=== PATIENT | male | born 1950 | race Caucasian/White ===

== ENCOUNTER → 2018-07-19 07:40 | Outpatient (CLI) | payer MEDICARE, SELFPAY ==
[2018-07-19 10:11] LABS: Add Manual Diff / Slide Review NO; Basophils Percent Auto 0.6 % (0-2); Hematocrit 45.1 % (41-53); Hemoglobin 15.4 g/dL (13.5-17.5); Lymphocytes Percent Auto 40.1 % (25-40); Mean Corpuscular HGB Conc 34.2 % (30-36); Mean Corpuscular Hemoglobin 31.9 PG (26-34); Mean Corpuscular Volume 93.5 fL (80-100); Monocytes Percent Auto 9.5 % (3-14); Neutrophils Absolute Auto 2300 /uL (3000-5900); Neutrophils Percent Auto 47.8 % (50-75); Platelet Count 329 X10^3/uL (150-400); Red Blood Cell Count 4.82 X10^6/uL (4.5-5.9); White Blood Cell Count 4.9 X10^3/uL (4.5-11.0)
[2018-07-19 12:14] LABS: Alanine Aminotransferase 31 IU/L (21-72); Albumin 4.4 g/dL (3.5-5.0); Albumin Globulin Ratio 1.6 (1.0-2.8); Alkaline Phosphatase 64 U/L (38-126); Aspartate Aminotransferase 41 IU/L (17-59); BUN Creatinine Ratio 12.7 (6-22); Bilirubin Total 0.8 mg/dL (0.2-1.3); Blood Urea Nitrogen 14 mg/dL (9-20); Calcium 9.2 mg/dL (8.4-10.2); Carbon Dioxide 29 mmol/L (22-32); Chloride 99 mmol/L (98-107); Cholesterol 123 mg/dL (140-199); Estimated Glomerular Filt Rate > 60.0 mL/min (>60); Globulin 2.7 g/dL (1.7-4.1); Glucose 93 mg/dL (80-110); HDL Cholesterol 57 mg/dL (40-60); HEMOLYSIS < 15 (0-50); LDL Cholesterol Calculated 50 mg/dL (<100); Potassium 4.7 mmol/L (3.4-5.1); Sodium 139 mmol/L (137-145); Total Protein 7.1 g/dL (6.3-8.2); Triglycerides 79 mg/dL (35-150)
[2018-07-19 12:43] LABS: Prostate Specific Antigen Scrn 1.86 ng/mL (0.1-4.0)
== END ==
PROVIDERS: PCP Internal Medicine; Visit Provider Internal Medicine
DX: E78.00 Pure hypercholesterolemia, unspecified (principal); I10 Essential (primary) hypertension; M48.02 Spinal stenosis, cervical region; Z12.5 Encounter for screening for malignant neoplasm of prostate
CPT/HCPCS: 36415; 80053; 80061; 85025; G0103

== ENCOUNTER → 2018-08-09 12:36 | Outpatient (CLI) | payer MEDICARE, SELFPAY ==
--- NOTE | 2018-08-09 | DI.US.S_ITS ---
PROCEDURE: US ABD AORTA ANEURYSM SCREEN INDICATIONS: SCREENING FOR AAA TECHNIQUE: Real time scanning was performed of the aorta and iliac arteries, with image documentation. COMPARISON: None. FINDINGS: Aorta: Proximal aortic diameter measures 2.2 cm. Mid-aorta measures 2.2 cm. Distal aortic diameter is 1.8 cm. Iliac arteries: Right common iliac artery measures 1.1 cm. Left common iliac artery measures 1.2 cm. IMPRESSION: Negative for aneurysm. Dictated by: Adelso Saez M.D. on 08/09/2018 at 12:11 Approved by: Adelso Saez M.D. on 08/09/2018 at 12:12
== END ==
PROVIDERS: Family Provider Internal Medicine; PCP Internal Medicine; Visit Provider Internal Medicine
DX: Z13.6 Encounter for screening for cardiovascular disorders (principal)
CPT/HCPCS: 76706

== ENCOUNTER → 2019-04-21 15:28 | Outpatient (CLI) | payer MEDICARE, SELFPAY ==
[2019-04-21 16:28] LABS: Erythrocyte Sedimentation Rate 1 MM/HR (0-15)
[2019-04-21 17:49] LABS: C-Reactive Protein Quant < 0.5 mg/dL (<1.0)
== END ==
PROVIDERS: Family Provider Internal Medicine; PCP Internal Medicine; Visit Provider Internal Medicine
DX: H53.2 Diplopia (principal)
CPT/HCPCS: 36415; 85651; 86140

== ENCOUNTER → 2019-04-28 07:31 | Outpatient (CLI) | payer MEDICARE, SELFPAY ==
--- NOTE | 2019-04-28 | DI.MRI.S_ITS ---
PROCEDURE: MR STROKE Pre- and post-contrast brain MRI, non-contrast brain MR angiogram, pre- and postcontrast neck MR angiogram INDICATIONS: Diplopia TECHNIQUE: Brain: Noncontrast axial T1 spin echo, axial T2 fast spin echo, sagittal and axial FLAIR, coronal T2 fast spin echo, axial gradient echo, axial diffusion and ADC through the brain. After the administration of contrast, axial 3D VIBE of the cranial vasculature and brain. Brain MRA: Non-contrast 3-D time of flight MR angiogram, with multiple jnizpyh-mlfmsufmw-umlnimkpzg (MIP) reformats performed. Neck MRA: Axial and sagittal TruFISP through the neck. Coronal dynamic MR angiogram during administration of contrast in the arterial and venous phases, with 3-dimenstional mxnkdtr-sugeuwctc-azmkcfqobv (MIP) reformats constructed from subtraction images. COMPARISON: None. FINDINGS: Image quality: Excellent. BRAIN: CSF spaces: Ventricles are normal in size and shape. Basal cisterns are patent. No extra-axial fluid collections. Brain: No intracranial bleeds or mass effects. Owlf-white matter interface is normal. Diffusion weighted images show no acute ischemic insults. Brainstem appears normal. Normal intravascular flow voids are present. No abnormal intracranial enhancement. Skull and face: Calvarial marrow signal is normal. Orbits appear normal. Sinuses: Sinuses and mastoids are clear. BRAIN MR ANGIOGRAM: Anterior circulation: Intracranial internal carotid arteries are normal in size and enhancement. The flow within the paired anterior cerebral arteries is normal and symmetric. The flow within the middle cerebral arteries is normal and symmetric. The anterior communicating artery is seen. No stenoses, occlusions, or aneurysms. Posterior circulation: Dominant right vertebral artery. The basal artery appears grossly unremarkable. The flow within the posterior cerebral arteries is normal and symmetric. No stenoses, occlusions, or aneurysms. NECK MR ANGIOGRAM: Carotids: Great vessels demonstrate a conventional anatomy as they arise from the aortic arch. The origins of the common carotid arteries appear patent. The calibers and courses of both common carotid arteries are normal. The bifurcation regions appear normal bilaterally. The internal carotid arteries demonstrate normal course and caliber. Posterior circulation: The origin of the left vertebral arteries not well-visualized. Right vertebral artery origin grossly unremarkable. More superior portions of both vertebral arteries demonstrate normal course and caliber, and join to form a normal appearing basilar artery. Miscellaneous: Subclavian arteries appear patent. Pre-contrast images through the neck show no soft tissue abnormalities. IMPRESSION: BRAIN MRI: No evidence of acute ischemia. BRAIN MR ANGIOGRAM: No focal stenosis or occlusion NECK MR ANGIOGRAM: No ICA stenosis. Dominant right vertebral artery. Dictated by: Won Ortiz M.D. on 04/28/2019 at 9:51 Approved by: Won Ortiz M.D. on 04/28/2019 at 10:02
== END ==
PROVIDERS: PCP Internal Medicine; Visit Provider Internal Medicine
DX: H53.2 Diplopia (principal)
CPT/HCPCS: 70548; 70553

== ENCOUNTER → 2019-08-19 09:19 | Outpatient (CLI) | payer MEDICARE, SELFPAY ==
[2019-08-19 11:29] LABS: Alanine Aminotransferase 28 IU/L (<50); Aspartate Aminotransferase 39 IU/L (17-59)
[2019-08-19 12:00] LABS: Prostate Specific Antigen Scrn 1.99 ng/mL (0.1-4.0)
[2019-08-19 12:38] LABS: Hep C Virus Ab w/Reflex Quant NEGATIVE s/c (NEGATIVE)
== END ==
PROVIDERS: PCP Internal Medicine; Visit Provider Internal Medicine
DX: Z00.00 Encounter for general adult medical examination without abnormal findings (principal); E78.00 Pure hypercholesterolemia, unspecified; I10 Essential (primary) hypertension; N40.1 Benign prostatic hyperplasia with lower urinary tract symptoms
CPT/HCPCS: 36415; 84153; 84450; 84460; 86803; G0103

== ENCOUNTER → 2020-02-12 07:20 | Outpatient (CLI) | payer MEDICARE, SELFPAY ==
[2020-02-12 08:11] LABS: Add Manual Diff / Slide Review NO; Basophils Absolute Auto 0 /uL (0-100); Basophils Percent Auto 0.4 % (0-2); Eosinophils Absolute Auto 100 /uL (0-450); Eosinophils Percent Auto 2.4 % (2-4); Hematocrit 46.7 % (41-53); Hemoglobin 16.2 g/dL (13.5-17.5); Lymphocytes Absolute Auto 1700 /uL (1100-4500); Lymphocytes Percent Auto 29.6 % (25-40); Mean Corpuscular HGB Conc 34.7 % (30-36); Mean Corpuscular Hemoglobin 32.2 PG (26-34); Mean Corpuscular Volume 92.8 fL (80-100); Monocytes Absolute Auto 500 /uL (0-900); Monocytes Percent Auto 9.5 % (3-14); Neutrophils Absolute Auto 3300 /uL (1500-7000); Neutrophils Percent Auto 58.1 % (50-75); Platelet Count 273 X10^3/uL (150-400); Red Blood Cell Count 5.03 X10^6/uL (4.5-5.9); Red Cell Distribution Width 13.4 % (11.6-14.8); White Blood Cell Count 5.6 X10^3/uL (4.5-11.0)
[2020-02-12 08:20] LABS: Alanine Aminotransferase 30 IU/L (<50); Albumin 4.6 g/dL (3.5-5.0); Albumin Globulin Ratio 1.4 (1.0-2.8); Alkaline Phosphatase 72 U/L (38-126); Aspartate Aminotransferase 41 IU/L (17-59); Bilirubin Total 0.8 mg/dL (0.2-1.3); Blood Urea Nitrogen 20 mg/dL (9-20); Calcium 9.7 mg/dL (8.4-10.2); Carbon Dioxide 26 mmol/L (22-32); Chloride 104 mmol/L (98-107); Cholesterol 149 mg/dL (140-199); Estimated Glomerular Filt Rate > 60.0 mL/min (>60); Globulin 3.2 g/dL (1.7-4.1); Glucose 108 mg/dL (80-110); HDL Cholesterol 45 mg/dL (40-60); HEMOLYSIS 23 (0-50); LDL Cholesterol Calculated 70 mg/dL (<100); Magnesium 2.3 mg/dL (1.6-2.3); Potassium 4.3 mmol/L (3.4-5.1); Sodium 137 mmol/L (137-145); Total Protein 7.8 g/dL (6.3-8.2); Triglycerides 170 mg/dL (35-150)
[2020-02-12 08:53] LABS: TSH w/ Reflex to FT4 4.15 uIU/mL (0.47-4.68)
== END ==
PROVIDERS: PCP Internal Medicine; Referring Provider Internal Medicine; Visit Provider Internal Medicine
DX: Z00.00 Encounter for general adult medical examination without abnormal findings (principal); E78.00 Pure hypercholesterolemia, unspecified; I10 Essential (primary) hypertension; N40.1 Benign prostatic hyperplasia with lower urinary tract symptoms
CPT/HCPCS: 36415; 80053; 80061; 83735; 84443; 85025

== ENCOUNTER → 2020-03-23 07:10 | Outpatient (CLI) | payer MEDICARE, SELFPAY ==
[2020-03-23 08:32] LABS: HEMOLYSIS < 15 (0-50); Magnesium 2.3 mg/dL (1.6-2.3); Potassium 4.8 mmol/L (3.4-5.1)
[2020-03-23 09:05] LABS: Thyroid Stimulating Hormone 6.46 uIU/mL (0.47-4.68)
== END ==
PROVIDERS: PCP Internal Medicine; Referring Provider Internal Medicine; Visit Provider Internal Medicine
DX: I10 Essential (primary) hypertension (principal); R00.2 Palpitations
CPT/HCPCS: 36415; 83735; 84132; 84443

== ENCOUNTER → 2020-04-12 11:48 | Outpatient (CLI) | payer MEDICARE, SELFPAY ==
[2020-04-13 12:51] LABS: COVID19 Sendout Not Detected (Not Detect)
== END ==
PROVIDERS: PCP Internal Medicine; Visit Provider Physician Assistant
DX: Z11.59 Encounter for screening for other viral diseases (principal)
CPT/HCPCS: 87635

== ENCOUNTER → 2020-04-13 13:47 | Outpatient (CLI) | payer MEDICARE, SELFPAY ==
[2020-04-13 15:57] LABS: Free T4, Direct Thyroxine 0.88 ng/dL (0.78-2.19)
[2020-04-13 16:11] LABS: Thyroid Stimulating Hormone 2.94 uIU/mL (0.47-4.68)
== END ==
PROVIDERS: PCP Internal Medicine; Referring Provider Internal Medicine; Visit Provider Internal Medicine
DX: E03.9 Hypothyroidism, unspecified (principal)
CPT/HCPCS: 36415; 84439; 84443

== ENCOUNTER → 2020-04-15 10:09 | Outpatient (CLI) | payer MEDICARE, SELFPAY ==
--- NOTE | 2020-04-16 06:58 | DI.NM.S_ITS ---
DATE OF SERVICE: 04/15/2020 PROCEDURE PERFORMED: Exercise treadmill stress and rest myocardial perfusion imaging study with gating to assess ejection fraction and regional wall motion, performed as a one day study. ORDERING PROVIDER: Dr. Nito Robertson. INDICATION: The patient is a 69-year-old male with recent palpitations and documented SVT. EXERCISE TREADMILL TESTING: The patient was able to exercise for 8 minutes, 39 seconds on a standard Hari protocol, suggesting good exercise capacity with an SHANA of -14%. He had a normal heart rate and blood pressure response to exercise, achieving a maximum heart rate of 160 BPM (105% of his predicted maximum). He had no chest discomfort. His resting ECG is normal and there are no concerning ST-segment shifts with exercise. He had occasional PACs with one brief four-beat run of SVT noted. There were no there were no concerning arrhythmias. At 7 minutes, 30 seconds of exercise at a heart rate of 157 BPM, 25.3 millicuries of technetium-99m Myoview was injected and the patient was imaged 20 minutes later using a gated SPECT acquisition protocol. Earlier in the day, while at rest, he was injected with 12.4 millicuries of technetium-99m Myoview and was imaged 30 minutes later, again using a gated SPECT acquisition protocol. FINDINGS: 1. Raw Data: There is fairly good myocardial tracer uptake. Lung/heart ratio is at the upper limits of normal at 0.40 with a normal TID ratio of 0.84. 2. Quantitated gated SPECT: Post-stress ejection fraction is estimated at 70% without any focal wall motion abnormality. The resting ejection fraction is estimated at 75% with an end-diastolic volume of 83 mL. 3. Myocardial perfusion imaging. Post-stress supine images show a normal myocardial perfusion pattern with mildly reduced counts at the base of the inferior wall that resolve on prone imaging, consistent with diaphragmatic attenuation. The resting images show an identical perfusion pattern without any areas of improvement. CONCLUSION: 1. Normal myocardial perfusion study without evidence for myocardial ischemia or previous myocardial infarction. 2. Normal left ventricular systolic function without any focal wall motion abnormality. 3. Good exercise capacity without angina or ECG evidence of ischemia. He had occasional PACs and a brief run of supraventricular tachycardia, but no concerning arrhythmias. Artemio Peralta - ADELAIDA/adolfo/carol doc#: [id number]/job#: [id number] dd: 04/15/2020 17:09:00 dt: 04/16/2020 06:26:00 DICTATING MD/COPIES TO: Tereso Sims MD; Nito Robertson MD COPIES MNE: LIZ;
== END ==
PROVIDERS: PCP Internal Medicine; Referring Provider Internal Medicine; Visit Provider Internal Medicine
DX: I47.1 Supraventricular tachycardia (principal); R00.2 Palpitations
CPT/HCPCS: 78452; 93017; A9502

== ENCOUNTER → 2020-10-15 08:26 | Outpatient (CLI) | payer MEDICARE, SELFPAY ==
[2020-10-15] MEDS: COVID-19 VACC #1, MRNA(MOD) 100 MCG/0.5 ML VIAL IM (08:30)
== END ==
PROVIDERS: PCP Internal Medicine; Visit Provider Internal Medicine
DX: Z23 Encounter for immunization (principal)
CPT/HCPCS: 0011A; 91301

== ENCOUNTER → 2020-10-28 09:10 | Outpatient (CLI) | payer MEDICARE, SELFPAY ==
[2020-10-28 10:20] LABS: Add Manual Diff / Slide Review NO; Basophils Absolute Auto 0 /uL (0-100); Basophils Percent Auto 0.9 % (0-2); Eosinophils Absolute Auto 100 /uL (0-450); Eosinophils Percent Auto 1.3 % (2-4); Hematocrit 44.8 % (41-53); Hemoglobin 15.3 g/dL (13.5-17.5); Lymphocytes Absolute Auto 1400 /uL (1100-4500); Lymphocytes Percent Auto 28.2 % (25-40); Mean Corpuscular HGB Conc 34.1 % (30-36); Mean Corpuscular Hemoglobin 31.7 PG (26-34); Mean Corpuscular Volume 92.8 fL (80-100); Monocytes Absolute Auto 400 /uL (0-900); Monocytes Percent Auto 8.5 % (3-14); Neutrophils Absolute Auto 3000 /uL (1500-7000); Neutrophils Percent Auto 61.1 % (50-75); Platelet Count 300 X10^3/uL (150-400); Red Blood Cell Count 4.82 X10^6/uL (4.5-5.9); Red Cell Distribution Width 12.8 % (11.6-14.8); White Blood Cell Count 4.9 X10^3/uL (4.5-11.0)
[2020-10-28 10:54] LABS: Alanine Aminotransferase 95 IU/L (<50); Albumin 4.2 g/dL (3.5-5.0); Albumin Globulin Ratio 1.6 (1.0-2.8); Alkaline Phosphatase 70 U/L (38-126); Aspartate Aminotransferase 64 IU/L (17-59); BUN Creatinine Ratio 13.8 (6-22); Bilirubin Total 0.7 mg/dL (0.2-1.3); Blood Urea Nitrogen 15 mg/dL (9-20); Calcium 9.3 mg/dL (8.4-10.2); Carbon Dioxide 28 mmol/L (22-32); Chloride 101 mmol/L (98-107); Cholesterol 145 mg/dL (140-199); Estimated Glomerular Filt Rate > 60.0 mL/min (>60); Globulin 2.6 g/dL (1.7-4.1); Glucose 107 mg/dL (80-110); HDL Cholesterol 47 mg/dL (40-60); HEMOLYSIS < 15 (0-50); LDL Cholesterol Calculated 73 mg/dL (<100); Magnesium 1.9 mg/dL (1.6-2.3); Potassium 4.6 mmol/L (3.4-5.1); Sodium 135 mmol/L (137-145); Total Protein 6.8 g/dL (6.3-8.2); Triglycerides 124 mg/dL (35-150)
[2020-10-28 11:19] LABS: TSH w/ Reflex to FT4 2.57 uIU/mL (0.47-4.68)
== END ==
PROVIDERS: PCP Internal Medicine; Referring Provider Internal Medicine; Visit Provider Internal Medicine
DX: E78.00 Pure hypercholesterolemia, unspecified (principal); I10 Essential (primary) hypertension; R00.2 Palpitations
CPT/HCPCS: 36415; 80053; 80061; 83735; 84443; 85025

== ENCOUNTER → 2020-11-11 09:39 | Outpatient (CLI) | payer MEDICARE, SELFPAY ==
[2020-11-11] MEDS: COVID-19 VACC #2, MRNA(MOD) 100 MCG/0.5 ML VIAL IM (09:43)
== END ==
PROVIDERS: PCP Internal Medicine; Visit Provider Internal Medicine
DX: Z23 Encounter for immunization (principal)
CPT/HCPCS: 0012A; 91301

== ENCOUNTER → 2020-11-25 09:38 | Outpatient (CLI) | payer MEDICARE, SELFPAY ==
[2020-11-25 10:29] LABS: Alanine Aminotransferase 46 IU/L (<50); Albumin 4.3 g/dL (3.5-5.0); Albumin Globulin Ratio 1.7 (1.0-2.8); Alkaline Phosphatase 65 U/L (38-126); Aspartate Aminotransferase 38 IU/L (17-59); Bilirubin Total 0.4 mg/dL (0.2-1.3); Bilirubin Unconjugated 0.4 mg/dL (0.0-1.1); Globulin 2.6 g/dL (1.7-4.1); HEMOLYSIS < 15 (0-50); Total Protein 6.9 g/dL (6.3-8.2)
== END ==
PROVIDERS: PCP Internal Medicine; Referring Provider Internal Medicine; Visit Provider Internal Medicine
DX: R74.8 Abnormal levels of other serum enzymes (principal)
CPT/HCPCS: 36415; 80076

== ENCOUNTER → 2021-02-14 08:54 | Outpatient (CLI) | payer MEDICARE, SELFPAY ==
[2021-02-14 13:46] LABS: COVID19 -Nasal RAPID Negative (Negative)
== END ==
PROVIDERS: PCP Internal Medicine; Visit Provider Physician Assistant
DX: Z01.812 Encounter for preprocedural laboratory examination (principal); Z20.822 Contact with and (suspected) exposure to COVID-19
CPT/HCPCS: 87635; C9803

== ENCOUNTER 2021-02-16 08:46 | Day surgery (SDC) | payer MEDICARE, SELFPAY ==
[2021-02-16 09:05] VITALS: BP 126/85; PULSE 76; RESP 18; TEMP 36.6; O2SAT 98; BMI 25.8
[2021-02-16] MEDS: SODIUM CHLORIDE 0.9% 1,000 ML 84 ML IV (09:26)
[2021-02-16 09:27] VITALS: BMI 25.8
--- NOTE | 2021-02-16 09:27 | PM.HP.1 ---
History of Present Illness History of Present Illness Date Patient Seen: 02/16/21 Chief complaint: SCREENING COLONOSCOPY W/POSS BX Narrative: History of polyps Patient History Medical History (Updated 02/15/21 @ 14:43 by Brittany Peralta, RN) Colon polyp (~2014) HTN (hypertension) Hyperlipidemia Surgical History (Updated 02/15/21 @ 14:43 by Brittany Peralta, RN) History of laminectomy Hx of tonsillectomy Family & Social History Social History: household members spouse Tobacco & Substance use: Smoking Status Never smoker alcohol intake frequency a few times a week Substance Use Type does not use Meds Home Medications and Allergies Home Medications Medication Instructions Recorded Confirmed Type Altoprev 20 mg PO HS #0 12/08/17 History lisinopril 20 mg PO QDAY #0 12/08/17 History cholecalciferol (vitamin D3) 50 mcg PO DAILY 02/15/21 02/16/21 History [Vitamin D3] fluticasone propionate 1 spray INTRANASAL DAILY 02/15/21 02/16/21 History Allergies Allergy/AdvReac Type Severity Reaction Status Date / Time No Known Drug Allergies Allergy Verified 02/16/21 08:56 Exam Vital Signs (past 8 hours): - 02/16/21 09:05 Temperature 97.9 F Pulse Rate 76 Respiratory Rate 18 Blood Pressure 126/85 Pulse Oximetry 98 Oxygen Delivery Method Room Air Narrative Exam Narrative: Oropharynx free of lesions Chest clear to auscultation percussion Cardiac exam reveals no S3 or murmur Assessment & Plan Assessment & Plan narrative: History of colon polyps need for follow-up colonoscopy at a 5 year interval. Risks, benefits, alternatives have been explained.
--- NOTE | 2021-02-16 09:27 | PM.OP.ENDO ---
Operative Date/Time/Diagnoses Date of procedure: 02/16/21 Pre-op diagnosis: See indication and findings Procedure & Clinicians Study performed: Colonoscopy Same procedure as scheduled: Yes Indications: History of colon polyps Surgeon: Hoang Moise Procedure Notes Procedure in detail: After informed consent was obtained the patient was placed in left lateral decubitus position. The video colonoscope was introduced the rectum slowly advanced cecum. On slow withdrawal mucosa was carefully examined. The scope was removed. The patient tolerated procedure well. Blood loss none Complications none Sedation Total sedation time 16 minutes Versed 3 mg fentanyl 100 micro g IV titration Findings 1. Normal colonoscopy to cecum other than scattered left-sided diverticulosis. Follow-up colonoscopy should be in 5 years given his history of multiple polyps in the past.
[2021-02-16] MEDS: fentaNYL 250 MCG/5 ML INJ IV (10:34)
[2021-02-16] MEDS: MIDAZOLAM 5 MG/5 ML VIAL IV (10:38)
[2021-02-16 10:55] VITALS: BP 104/69; PULSE 65; RESP 11; TEMP 36.2; O2SAT 93
[2021-02-16 11:00] VITALS: BP 108/74; PULSE 64; RESP 10; O2SAT 95
[2021-02-16 11:05] VITALS: BP 111/71; PULSE 77; RESP 12; O2SAT 95
[2021-02-16 11:09] VITALS: BP 106/70; PULSE 63; RESP 15; TEMP 36.3; O2SAT 94
--- NOTE | 2021-02-16 11:16 | SUR.PHASEI ---
Pt to PACU after colonoscopy with sedation. Awoken easily, breathing unassisted on room air. Transferred to OPD and SBAR report given to Isabelle HOYT.
[2021-02-16 11:20] VITALS: BP 115/75; PULSE 65; RESP 16; TEMP 36.2; O2SAT 100
--- NOTE | 2021-02-16 11:38 | SUR.PHASEII ---
pt ready to go home and states he feels fine. No complaints of pain or nausea. Pt to be discharged with .
== END 2021-02-16 11:37 | disposition home or self-care (01) ==
PROVIDERS: PCP Internal Medicine; Referring Provider Internal Medicine Gastroenterology; Visit Provider Internal Medicine Gastroenterology
PROC: 0DJD8ZZ Inspection of Lower Intestinal Tract, Via Natural or Artificial Opening Endoscopic (ICD-10-PCS; CPT 45378; principal; 2021-02-16 10:00)
DX: Z12.11 Encounter for screening for malignant neoplasm of colon (principal); Z86.010 Personal history of colon polyps; Z80.0 Family history of malignant neoplasm of digestive organs; I10 Essential (primary) hypertension; E78.5 Hyperlipidemia, unspecified; K57.30 Diverticulosis of large intestine without perforation or abscess without bleeding
CPT/HCPCS: G0105; J2250; J3010

== ENCOUNTER → 2021-04-04 09:04 | Outpatient (CLI) | payer MEDICARE, SELFPAY ==
--- NOTE | 2021-04-04 | DI.MRI.S_ITS ---
PROCEDURE: MR LUMBAR SPINE WO CON INDICATIONS: Radiculopathy, lumbar region TECHNIQUE: Noncontrast sagittal T1 spin echo and T2 fast echo, sagittal STIR, axial T1 and T2 fast spin echo through the lumbar spine. In cases with scoliosis, additional coronal T2 fast spin echo may be performed. COMPARISON: None. FINDINGS: Image quality: Excellent. Alignment and Curvature: There is straightening of normal lumbar lordosis. Bone Marrow: Marrow is of normal overall signal. No acute vertebral body compression fractures. Spinal Cord: Conus medullaris terminates at the L1 level. Visualized cord demonstrates normal signal and size. Paraspinous Soft Tissues: No paravertebral masses. T12-L1: Normal appearance. L1-L2: Decreased disc height and loss of disc signal is seen. There is broad-based disc bulge and bilateral facet arthrosis with mild central canal stenosis, no significant neural foraminal narrowing. L2-L3: Near complete loss of disc height is seen with degenerative endplate changes. Broad-based disc bulge and bilateral facet arthrosis is seen causing mild central canal stenosis and left worse than right bilateral neural foraminal narrowing. L3-L4: Loss of normal disc signal is seen with mild degenerative endplate changes. Broad-based disc bulge and bilateral facet arthrosis with hypertrophy of ligamentum flavum is seen. There is mild central canal stenosis and left-sided neural foraminal narrowing. L4-L5: Loss of disc height and disc signal is seen. Broad-based disc bulge and bilateral facet arthrosis is seen causing sszu-[id number] bilateral neural foraminal narrowing slightly worse on the right side , no significant central canal stenosis. L5-S1: Loss of disc signal and mildly lost disc height is seen. Broad-based disc bulge and bilateral facet arthrosis is noted with ilok-cz-tduoitio right-sided neural foraminal narrowing, no significant canal stenosis. IMPRESSION: 1. Degenerative disc bulge and bilateral facet arthrosis throughout lumbar spine as described above. 2. No acute compression fracture or spondylolisthesis. No marrow edema. 1 Dictated by: Issa Emery M.D. on 04/04/2021 at 10:43 Approved by: Issa Emery M.D. on 04/04/2021 at 10:49
== END ==
PROVIDERS: PCP Internal Medicine; Referring Provider Orthopaedic Surgery Orthopaedic Surgery of the Spine; Visit Provider Orthopaedic Surgery Orthopaedic Surgery of the Spine
DX: M51.16 Intervertebral disc disorders with radiculopathy, lumbar region (principal); M51.17 Intervertebral disc disorders with radiculopathy, lumbosacral region; M47.26 Other spondylosis with radiculopathy, lumbar region; M47.27 Other spondylosis with radiculopathy, lumbosacral region
CPT/HCPCS: 72148

== ENCOUNTER → 2022-10-17 12:39 | Outpatient (CLI) | payer MEDICARE, SELFPAY ==
--- NOTE | 2022-10-17 12:41 | DI.MRI.S_ITS ---
PROCEDURE: MR CERVICAL SPINE WO CON INDICATIONS: Radiculopathy, cervical region TECHNIQUE: Noncontrast sagittal T1 spin echo and T2 fast spin echo, sagittal STIR, foraminal oblique sagittal T2 fast spin echo, and axial gradient echo or T2 fast spin echo through the cervical spine. COMPARISON: [facility], MR, C-SPINE WITHOUT CONTRAST, 06/24/2016, 11:47. [facility] [place], CR, XR CERVICAL SPINE 2 OR 3 VIEWS, 10/05/2022, 12:14. FINDINGS: Image quality: This examination is limited by involuntary motion artifact. Alignment and Curvature: There is normal bony alignment. Bone Marrow: Marrow demonstrates normal overall signal. Spinal Cord: Visualized spinal cord has normal size and signal. No cerebellar tonsillar herniation. Paraspinous Soft Tissues: No paravertebral masses. Prevertebral soft tissues are normal in thickness. C2-C3: The disc height is well-preserved. Loss of disc signal is seen at this level. A mild degree of generalized disc osteophyte complex is seen. There is moderate right-sided and mild left-sided facet hypertrophy. There is mild right-sided and no significant left-sided neural foraminal narrowing. Mild central canal narrowing is seen. These imaging findings have progressed compared to the prior study. C3-C4: The disc height is well-preserved. Loss of disc signal is seen at this level. At least moderate disc osteophyte complex is seen, which is eccentric to the right. There is a central disc osteophyte protrusion seen, as on series 4, image 21. Mac VIII facet there is moderate to severe bilateral neural foraminal narrowing seen. Moderate central canal narrowing is seen. There is associated mass effect upon the ventral spinal cord. These imaging findings have progressed compared to the prior study. C4-C5: Moderate loss of disc height is seen. Loss of disc signal is seen. Bridging endplate osteophytes are seen. Moderate generalized disc osteophyte complex is seen. Moderate facet joint hypertrophy is seen. There is moderate to severe left-sided and at least moderate right-sided neural foraminal narrowing. Mild central canal narrowing is seen. When comparison is made with the prior images, these findings are similar. C5-C6: Moderate loss of disc height is seen. Loss of disc signal is seen. Moderate generalized disc osteophyte complex is seen. Moderate facet joint hypertrophy is seen. There is moderate to severe bilateral neural foraminal narrowing seen. Moderate central canal narrowing is seen. There is associated mass effect upon the ventral spinal cord. When comparison is made with the prior images, these findings are similar. C6-C7: Moderate loss of disc height is seen. Loss of disc signal is seen. Moderate disc osteophyte complex is seen, which is eccentric to the right, with a mild central/right disc osteophyte protrusion. Disc osteophyte protrusions can be seen within both neural foramina. Moderate facet joint hypertrophy is seen. Moderate to severe bilateral neural foraminal narrowing can be seen. Moderate central canal narrowing is seen. There is associated mass effect upon the ventral spinal cord. These degenerative changes are mildly progressed compared to the prior. C7-T1: Dska-oc-njswnlpn loss of disc height and disc signal can be seen. A mild degree of generalized disc osteophyte complex is seen. Mild to moderate facet hypertrophy is seen at this level. No significant neural foraminal or central canal narrowing can be seen. IMPRESSION: Multiple levels of significant cervical spine degenerative change are seen, which are progressed at several levels compared to 2016. Dictated by: Adelso Saez M.D. on 10/17/2022 at 16:16 Approved by: Adelso Saez M.D. on 10/17/2022 at 16:21
== END ==
PROVIDERS: PCP Physician Assistant; Referring Provider Orthopaedic Surgery Orthopaedic Surgery of the Spine; Visit Provider Orthopaedic Surgery Orthopaedic Surgery of the Spine
DX: M47.22 Other spondylosis with radiculopathy, cervical region (principal)
CPT/HCPCS: 72141

== ENCOUNTER → 2022-11-08 09:08 | Outpatient (CLI) | payer MEDICARE, SELFPAY ==
--- NOTE | 2022-11-08 09:12 | DI.RAD.S_ITS ---
PROCEDURE: XR HAND LT MIN 3V INDICATIONS: PAIN IN BOTH HANDS TECHNIQUE: 3 views of the hand(s) acquired. COMPARISON: None. FINDINGS: Bones: Mild 2nd, 3rd, and 5th MCP joint space narrowing with osteophytosis. Moderate 1st CMC and triscaphe joint space narrowing and osteophytosis. No fractures or dislocations. Carpal bones are normally aligned. No suspicious bony lesions. Soft tissues: No suspicious soft tissue calcifications. IMPRESSION: Tyvi-te-uwcamgqm scattered osteoarthritic changes. Dictated by: Babak Nick M.D. on 11/08/2022 at 15:09 Approved by: Babak Nick M.D. on 11/08/2022 at 15:10
--- NOTE | 2022-11-08 09:12 | DI.RAD.S_ITS ---
PROCEDURE: XR HAND RT MIN 3V INDICATIONS: PAIN IN BOTH HANDS TECHNIQUE: 3 views of the hand(s) acquired. COMPARISON: None. FINDINGS: Moderate 1st CMC joint space narrowing and osteophytosis. Mild triscaphe osteoarthritic changes. Bile duct the body rate 1st, 2nd, and 3rd MCP osteoarthritic changes. Moderate 1st interphalangeal degenerative change. No acute or suspicious bone lesion. IMPRESSION: Sqet-ed-ihsezfnu osteoarthritic changes as detailed above. Dictated by: Babak Nick M.D. on 11/08/2022 at 15:10 Approved by: Babak Nick M.D. on 11/08/2022 at 15:11
== END ==
PROVIDERS: PCP Physician Assistant; Referring Provider Physician Assistant; Visit Provider Physician Assistant
DX: M79.641 Pain in right hand (principal); M79.642 Pain in left hand
CPT/HCPCS: 73130

== ENCOUNTER → 2023-01-27 10:20 | Outpatient (CLI) | payer MEDICARE, SELFPAY ==
--- NOTE | 2023-01-27 10:22 | DI.RAD.S_ITS ---
PROCEDURE: XR HIP W PEL IF DONE RT 2V INDICATIONS: Right hip pain TECHNIQUE: AP pelvis with lateral view(s) of the right hip(s). COMPARISON: None. FINDINGS: Bones: No fractures or dislocations. Pelvic ring appears intact. No suspicious bony lesions. Mild bilateral hip joint space narrowing and periarticular osteophyte formation. Soft tissues: The visualized bowel gas pattern is normal. No suspicious soft tissue calcifications. IMPRESSION: Osteoarthritis. No acute fracture. No osseous lesion. If symptoms and/or clinical suspicion for pathology persist, further assessment with repeat, or advanced imaging (e.g., CT, MRI, or bone scan) may be helpful for further assessment. Dictated by: Anna Shea M.D. on 01/27/2023 at 9:39 Approved by: Anna Shea M.D. on 01/27/2023 at 9:39
== END ==
PROVIDERS: PCP Physician Assistant; Referring Provider Nurse Practitioner Family; Visit Provider Nurse Practitioner Family
DX: M19.90 Unspecified osteoarthritis, unspecified site (principal)
CPT/HCPCS: 73502

== ENCOUNTER → 2023-03-29 13:57 | Outpatient (CLI) | payer MEDICARE, SELFPAY ==
--- NOTE | 2023-03-29 13:59 | DI.RAD.S_ITS ---
PROCEDURE: XR SHOULDER RT MIN 2V INDICATIONS: Shoulder pain TECHNIQUE: 3 views of the shoulder were acquired. COMPARISON: None. FINDINGS: Bones: No fractures or dislocations. No suspicious bony lesions. Visualized ribs appear intact. Mild AC joint hypertrophy. Soft tissues: No suspicious soft tissue calcifications. IMPRESSION: No acute osseous abnormality. If symptoms persist, follow-up radiographs and/or CT or MRI may be helpful for further evaluation. Dictated by: Jesús Rodriguez M.D. on 03/29/2023 at 17:02 Approved by: Jesús Rodriguez M.D. on 03/29/2023 at 17:03
== END ==
PROVIDERS: PCP Physician Assistant; Referring Provider Nurse Practitioner Family; Visit Provider Nurse Practitioner Family
DX: M25.511 Pain in right shoulder (principal)
CPT/HCPCS: 73030

== ENCOUNTER → 2023-04-27 07:06 | Outpatient (CLI) | payer MEDICARE, SELFPAY ==
[2023-04-27 07:49] LABS: Hemoglobin A1C% w Est Avg Glu 5.7 % (4.0-6.0)
[2023-04-27 07:52] LABS: Add Manual Diff / Slide Review NO; Basophils Absolute Auto 0 /uL (0-100); Basophils Percent Auto 0.5 % (0-2); Eosinophils Absolute Auto 100 /uL (0-450); Eosinophils Percent Auto 1.8 % (2-4); Hematocrit 42.1 % (41-53); Hemoglobin 14.8 g/dL (13.5-17.5); Lymphocytes Absolute Auto 1600 /uL (1100-4500); Mean Corpuscular HGB Conc 35.2 % (30-36); Mean Corpuscular Hemoglobin 32.4 PG (26-34); Mean Corpuscular Volume 91.9 fL (80-100); Monocytes Absolute Auto 500 /uL (0-900); Monocytes Percent Auto 8.3 % (3-14); Neutrophils Absolute Auto 3300 /uL (1500-7000); Neutrophils Percent Auto 60.4 % (50-75); Platelet Count 318 X10^3/uL (150-400); Red Blood Cell Count 4.58 X10^6/uL (4.5-5.9); Red Cell Distribution Width 12.6 % (11.6-14.8); White Blood Cell Count 5.5 X10^3/uL (4.5-11.0)
[2023-04-27 07:56] LABS: BUN Creatinine Ratio 20.4 (6-22); Blood Urea Nitrogen 22 mg/dL (9-20); Calcium 9.4 mg/dL (8.4-10.2); Carbon Dioxide 24 mmol/L (22-32); Chloride 102 mmol/L (98-107); Estimated Glomerular Filt Rate > 60 mL/min (>60); Glucose 105 mg/dL (80-110); HEMOLYSIS < 15 (0-50); Potassium 4.5 mmol/L (3.4-5.1); Sodium 135 mmol/L (137-145)
== END ==
PROVIDERS: PCP Physician Assistant; Referring Provider Orthopaedic Surgery Orthopaedic Surgery of the Spine; Visit Provider Orthopaedic Surgery Orthopaedic Surgery of the Spine
DX: Z01.818 Encounter for other preprocedural examination (principal); R73.9 Hyperglycemia, unspecified; Z01.812 Encounter for preprocedural laboratory examination
CPT/HCPCS: 36415; 80048; 83036; 85025; 93005

== ENCOUNTER → 2023-05-04 | Outpatient (CLI) | payer MEDICARE, SELFPAY ==
--- NOTE | 2023-05-04 | DI.MRI.S_ITS ---
PROCEDURE: MR SHOULDER RT WO CON INDICATIONS: R/O ROTATOR CUFF TEAR TECHNIQUE: Noncontrast oblique coronal T2 fast spin echo with fat saturation, oblique sagittal T1 spin echo and T2 fast spin echo with fat saturation, axial T1 spin echo and T2 fast spin echo with fat saturation through the shoulder. COMPARISON: [facility] [place], CR, XR SHOULDER 2+ VIEWS RIGHT, 04/26/2023, 12:12. FINDINGS: Image quality: Excellent. Rotator cuff: There is moderate T2 signal elevation diffusely throughout the supraspinatus and infraspinatus tendons at the humeral insertion sites extending to the musculotendinous junction, indicating tendinopathy. Superimposed high-grade intrasubstance and articular surface tearing of the anterior, mid, and posterior supraspinatus tendon just proximal to the humeral insertion site. Low-grade bursal surface and intrasubstance tearing of the mid and anterior infraspinatus tendon at the humeral insertion site. Low-grade intrasubstance tearing of the mid and superior subscapularis tendon at the humeral insertion site. Bones and bursae: No bone marrow contusions or fractures. Moderate glenohumeral and acromioclavicular joint degeneration. The acromion demonstrates conventional anatomy, without an os acromiale. A small amount of subacromial-subdeltoid or subcoracoid bursal fluid is present. Capsule and soft tissues: There is diffuse fraying of the glenoid labrum. There is undercutting of the mid anterior labrum. Moderate T2 signal elevation diffusely throughout the biceps tendon is present, indicating tendinopathy. Superimposed moderate grade partial thickness tearing of the biceps tendon is present. The rotator interval appears normal, without fibrosis. The coracohumeral ligament is normal in thickness. IMPRESSION: 1. Acromioclavicular and glenohumeral joint osteoarthritis. 2. Supraspinatus and infraspinatus tendinopathy. Superimposed high-grade tearing of the supraspinatus tendon. 3. Low-grade tearing of the subscapularis and infraspinatus tendons. 3. Glenoid labral tearing. 4. Biceps tendinopathy and partial-thickness tearing. 5. Subacromial bursitis. Dictated by: Anna Shea M.D. on 05/04/2023 at 13:46 Approved by: Anna Shea M.D. on 05/04/2023 at 13:49
== END ==
LOC: MRI 11:14
PROVIDERS: PCP Physician Assistant; Referring Provider Orthopaedic Surgery; Visit Provider Orthopaedic Surgery
DX: M75.111 Incomplete rotator cuff tear or rupture of right shoulder, not specified as traumatic (principal); M19.011 Primary osteoarthritis, right shoulder; S43.491A Other sprain of right shoulder joint, initial encounter; S46.211A Strain of muscle, fascia and tendon of other parts of biceps, right arm, initial encounter; M75.51 Bursitis of right shoulder
CPT/HCPCS: 73221

== ENCOUNTER 2023-06-11 06:27 | Inpatient (IN) | payer MEDICARE, SELFPAY ==
[2023-06-06 10:00] VITALS: BMI 26.1
[2023-06-11] VITALS (16 sets, daily range): BP systolic 116–165; BP diastolic 62–93; PULSE 91–111; RESP 10–16; TEMP 36.1–36.8; O2SAT 91–104; BMI 26.1
[2023-06-11] MEDS: GABAPENTIN 600 MG TABLET PO (07:07)
[2023-06-11] MEDS: LACTATED RINGERS 1,000 ML 42 ML IV ×2 (07:08→09:24)
[2023-06-11] MEDS: CEFAZOLIN 2 GM/100 ML PREMIX 100 ML IV ×3 (07:36→23:27)
[2023-06-11] MEDS: ACETAMINOPHEN 325 MG TABLET 975 MG PO (07:40)
--- NOTE | 2023-06-11 07:45 | PM.PREOP ---
Pre-operative Note Interval Note History & Physical reviewed/Exam performed by Physician: Yes Changes to H&P: No
--- NOTE | 2023-06-11 08:36 | SUR.OPER ---
Supine on padded OR bed, head on pillow, arms padded and tucked at sides, legs uncrossed, safety belt at thigh, tape over blanket over lower legs .
[2023-06-11] MEDS: BUPIVACAINE 0.25% (PF) 30 ML, EPINEPHrine 0.15 MG INJ (08:42)
--- NOTE | 2023-06-11 11:54 | PM.OP.1 ---
Operative Date/Time/Diagnoses Date of procedure: 06/11/23 Time of procedure: 07:45 Pre-op diagnosis: 1. C4-5, C5-6, C6-7 spinal stenosis 2. Cervical radiculopathy Post-op diagnosis: same Procedure & Clinicians Procedure: 1. C4-5 C5-6 C6-7 anterior cervical diskectomy and fusion 2. C4-5 C5-6 C6-7 anterior interbody cage placement 3. C4-5 C5-6 C6-7 anterior instrumentation with plate and screw placement in C4-C5-C6 and C7 vertebrae 4. Utilization of microsurgical technique and operating microscope Same procedure as scheduled: Yes Indications: Patient has been having chronic neck pain and worsening cervical radiculopathy. Patient failed multiple conservative management with worsening pain weakness and numbness in his upper extremity. Patient has been having difficulty performing activity of daily living. After discussing risks benefits of treatment options, patient elected proceed with surgery. Surgeon: Josué Marshall Senior Windows Systems Administrator: Dontae Boo Click Yes if Unassisted: No Anesthesia Type: General Operative Notes Closure Type: primary Specimen(s): none sent Prosthetic devices, grafts, tissues, transplants, or devices: Globus Extend Plate, Hedron C cages Applied: catheter Estimated Blood Loss (mL): 5 Blood products transfused: none Procedure in detail: Patient was seen in the preoperative area. Risks and benefits of the surgery was discussed with the patient. Operative consent was obtained and placed in the chart. Patient was then taken to the operative room. Prophylactic antibiotic was given less than 0.5 hr prior to skin incision. General anesthesia was administered. Patient was placed into a supine position on her radiolucent table. Bilateral shoulders were taped down to allow proper C-arm imaging. Anterior cervical area was prepped and draped in a sterile fashion. Time-out was performed at this time. Using lateral C-arm imaging, the level between C4 and C7 was identified and marked on patient's neck. A oblique incision from midline towards medial border of sternocleidomastoid muscle was made. The platysma muscle was incised in line with skin incision. Metzenbaum scissor was used to develop the plane between the medial border of sternocleidomastoid and the strap muscles medially. The carotid sheath and its contents were identified and protected behind the hand-held retractor during the entire case. The plane between the carotid sheath and strap muscles was developed with Metzenbaum scissors. Dissection was made down to the level of the anterior cervical fascia. Longus colli muscle was incised on the anterior aspect of vertebral bodies bilaterally from C4-C7. Spinal needle was placed into the C4-5 disc space and confirmed with lateral C-arm imaging. Self-retaining retractors were then placed protecting the carotid sheath the sheath laterally and the esophagus medially while exposing the surgical field between C4-C7 vertebrae. Using microsurgical technique and operative microscope, anterior cervical diskectomy was performed at C4-5 C5-6 and C6-7 level. This was done by removing the disc material, removing the anterior and posterior osteophytes posterior longitudinal ligaments along with performing bilateral foraminotomies at all 3 levels. Patient was found to have severe central and foraminal stenosis at all 3 levels. Patient's stenosis was fully decompressed after decompression was completed. After the diskectomy was completed, 3 anterior interbody cages were obtained. The cages were packed with globus DBM bone grafting material. One cage each along with the bone grafting material was then packed into the interbody spaces from C4-C7 with one cage into each interbody level. Patient had large anterior osteophytes at C5-C6 and C7 vertebrae. Large osteophytes was removed using Leksell rongeur in order to place anterior cervical plate. After the cages were placed, the anterior cervical plate was stabilized to the C4-C7 vertebrae using 2 screws at each each level. Total 8 screws were placed. After confirming placement of the hardware with AP and lateral C-arm imaging, the screws were locked into the plate using the locking mechanism and torque limiting screwdriver. After the hardware was placed and confirmed with AP and lateral C-arm imaging, the wound was irrigated with sterile normal saline. Hemostasis was accomplished using bipolar cautery. Carotid sheath contents and the esophagus was inspected and visualized and identified to be well protected throughout the entire case prior to closure. Platysma muscle and the subcutaneous tissue was closed with 2-0 Vicryl. The skin was closed with 4-0 Monocryl and Steri-Strips. Patient tolerated the procedure well. Patient was transferred recovery room in stable condition. There were no complications. Complications: none Post-operative Condition: stable Disposition: PACU Plan for aftercare: Admit to inpatient hospital
--- NOTE | 2023-06-11 12:00 | DI.RAD.S_ITS ---
PROCEDURE: XR CERVICAL SPINE 2V OR 3V INDICATIONS: C4-5, C5-6, C6-7 TECHNIQUE: 2 view(s) of the cervical spine were acquired. COMPARISON: None. FINDINGS: Fluoroscopic guidance utilized for an ACDF of C4-5, C5-6 and C6-7. Endotracheal tube tip projects over the midthoracic trachea. IMPRESSION: Fluoroscopic guidance utilized for ACDF of C4 through C7. Dictated by: Paul New M.D. on 06/11/2023 at 14:24 Approved by: Paul New M.D. on 06/11/2023 at 14:25
[2023-06-11] MEDS: OXYCODONE IR 5 MG TABLET PO ×3 (12:16→21:04)
[2023-06-11] MEDS: hydrOXYzine 50 MG/ML INJ 25 MG IM (12:17)
[2023-06-11] MEDS: LACTATED RINGERS 1,000 ML 125 ML IV ×2 (13:06→20:57)
[2023-06-11] MEDS: hydrOXYzine pamoate 25 MG CAPSULE PO ×2 (15:49→21:04)
--- NOTE | 2023-06-11 17:01 | PT.IIE ---
Current Diagnoses Other spondylosis with radiculopathy, cervical region (06/11/23) Spinal stenosis, cervical region (06/11/23) Surgery Performed Operation Date: 06/11/23 07:45 Actual Procedures p C4-5, C5-6, C6-7 ACDF w. anterior instrumentation - Josué Marshall MD Surgical History (Last Updated 06/06/23 @ 08:45 by Jane Vazquez, RN) History of arthroscopy of right shoulder (~1991) History of carpal tunnel release (~2011) History of laminectomy (~1988) History of vasectomy (~1984) Hx of tonsillectomy Medical History (Last Updated 06/06/23 @ 10:09 by Jane Vazquez, RN) Colon polyp (~2014) History of arthritis History of bruising easily History of cardiac arrhythmia History of degenerative disc disease History of Mohs micrographic surgery for skin cancer (~2016) HTN (hypertension) Hyperlipidemia Physical Therapy Inpatient Evaluation/Re-Eval M1 PT/OT-IP Prior Functional Status Start: 06/11/23 15:22 Freq: NEEDED Status: Active Protocol: Document 06/11/23 17:01 AM (Rec: 06/11/23 17:21 AM [id number]) Medical Review Prior Functional Status Medical History Reviewed Yes Communication No barriers to communication. Mobility and Gait Pt did not use AD prior to surgery. Activities of Daily Living and IADL's Pt independent with IADL's. Pt with recent bilateral shoulder injuries, which makes self-care more difficulty. Social History Household Members spouse Living Arrangements House Number of Floors (Floors) Two Floors Number of Stairs To Enter/Railing? 2 or 4 with railing Home Environment High Toilet Home Equipment Raised Toilet Seat Without Armrests,Grab Bars In Shower M2 PT-IP Current Condition Start: 06/11/23 15:22 Freq: NEEDED Status: Active Protocol: Document 06/11/23 17:01 AM (Rec: 06/11/23 17:21 AM [id number]) Physical Therapy Current Condition Current Condition Evaluation Date 06/11/23 Treatment Diagnosis cervical fusion Onset Date 06/11/23 M3 PT-IP Subjective Start: 06/11/23 15:22 Freq: NEEDED Status: Active Protocol: Document 06/11/23 17:01 AM (Rec: 06/11/23 17:21 AM [id number]) Subjective Physical Therapy Visit Type Type Initial Evaluation Visit Start Time 16:43 Visit Stop Time 17:00 Total Visit Minutes 17 Physical Therapy Visit Comments Patient Comments Pt sitting at EOB. Pt agreeable to IE. Pt reports no issues with walking in room to restroom with FWW. Therapy Pain Assessment Pain When Pain Assessed At Rest Pain Present Pain Present Pain Reported Location Neck Intensity 4 Scale Used Numeric (0 - 10) Description Aching M4 PT-IP Mobility and Gait Start: 06/11/23 15:22 Freq: NEEDED Status: Active Protocol: Document 06/11/23 17:01 AM (Rec: 06/11/23 17:21 AM [id number]) PT-Bed Mobility Assessment Sit to Supine Sit to Supine Independent,Head of Bed Elevated Scooting Scooting to Edge of Bed Independent Scooting Up and Down in Bed Independent PT-Transfer Assessment Sit to and From Stand Sit to and from Stand Standby Assistance Equipment Transfer Assistive Device None,Front Wheeled Walker,4 Wheeled Walker Orthotic/Prosthetic Devices or Brace: Yes Transfer Ability Level of Assist Standby Assistance Gait Assessment Gait Gait Assistance Required: Standby Assistance Distance (Feet) 150 Assistive Devices Assistive Device Gait Belt,Front Wheeled Walker Gait Deviations General Gait Pattern Decreased Stride Length, Decreased Feet Clearance Factors Limiting Gait Function Factors Limiting Gait Function Decreased Strength,Pain Comments Gait Comments Pt ambulated with FWW for 75 ft and without AD with CGA for 75ft. Pt ambulated while wearing soft collar PT-Balance Assessment Sitting Balance and Reactions Static Sitting Balance Ability Normal Dynamic Sitting Balance Ability Normal Standing Balance and Reactions Static Standing Balance Ability Normal Dynamic Standing Balance Ability Good Device Used FWW M5 PT-IP Objective Assessments Start: 06/11/23 15:22 Freq: NEEDED Status: Active Protocol: Document 06/11/23 17:01 AM (Rec: 06/11/23 17:21 AM [id number]) Orientation Orientation/Cognition Level of Alertness Alert Orientation Name,Date,Place,Situation Language Function Ability No Deficits Noted Safety Awareness Understands Safety Issues Memory Description No Deficits Noted Gross Range of Motion Upper Extremity ROM Assessment Bilaterally Impaired Impairments Pt reports that he recently injured bilateral shoulders. Pt with 90 degrees of L shoulder flexion and unable to lift R. Lower Extremity ROM Assessment Within Functional Limits Strength Upper Extremity Strength Assessment Bilaterally Impaired Shoulder NT secondary to shoulder pain and post-op fusion, though unable to do AROM Lower Extremity Strength Assessment Within Functional Limits Coordination Assessment Gross Coordination Gross Coordination WNL Sensation Assessment Sensation Gross Sensation WNL Muscle Tone Muscle Tone WNL Yes M6 PT-IP Treatment Start: 06/11/23 15:22 Freq: NEEDED Status: Active Protocol: Document 06/11/23 17:01 AM (Rec: 06/11/23 17:21 AM [id number]) Physical Therapy Treatment Education Education Provided Precautions,Post-Op Packet, Safety M7 PT-IP Assessment and Plan Start: 06/11/23 15:22 Freq: NEEDED Status: Active Protocol: Document 06/11/23 17:01 AM (Rec: 06/11/23 17:21 AM [id number]) PT Summary Assessment and Plan Potential Rehabilitation Potential Excellent Status of Condition at Evaluation Stable Summary Impairments Pain,ROM,Strength,Balance,Bed Mobility,Gait,Activity Tolerance Progress Towards Goals Progressing Toward Goals Assessment Summary Artemio Peralta evaluated post- op cervical fusion. Pt with good tolerance to ambulation with FWW and SBA. Pt ambulated with shorter strides and more caution when ambulating without AD. Pt required SBA with sit<-> stand transfers and min A with positioning in bed. Pt demonstrates good understanding of post-op guidelines. PT reiterated importance of keeping pathways clear at home to decrease fall risk. Pt would benefit from continued PT to progress activity tolerance, gait and functional mobility. Goals Bed Mobility Goal Independent Transfer Goal Independent Gait Goal Independent Gait Distance 300 Other Goals Pt able to ascend/descend 2 steps with railing. Days to Meet Goals 5 Frequency of Treatment Frequency Of Treatment Twice a Day Treatment Plan Physical Therapy Treatment Plan Bed Mobility Training,Transfer Training,Gait Training, Therapeutic Exercise,Balance Retraining,Post Op Education, Discharge Planning,Hot or Cold Pack,Neuromuscular Re-ed, Manual Therapy Other Recommendations and Next Treatment Assess stairs Focus Precautions Cervical Spine Precautions Soft Collar for Comfort,No Heavy Lifting,Log Roll Weight Bearing Status Weight Bearing Status Full Weight Bearing Recommendations To Nursing Amount of Assist Needed Standby Assistance Discharge Recommendations PT Discharge Recommendations Home Transportation Needs at Discharge Private Vehicle
--- NOTE | 2023-06-11 18:48 | PC.NURSE ---
Day shift: Pt came up to the floor from PACU at 1245pm. A&Ox4. VSS, mildly tachycardic. LR @ 125 mL/hr. Patient rating pain /10. Dressing on neck gauze and tegaderm - CDI. Educated patient about c-collar. No numbness, CMS + BUE and BLEs. No n/v. Pt OOB with SBA + FWW. Voiding in toilet. Tolerated dinner. Drinking fluids. at bedside most of the day. Call light within reach. Will continue to monitor.
[2023-06-11] MEDS: DOCUSATE 100 MG CAPSULE PO (20:59)
[2023-06-11] MEDS: lisinopriL 10 MG TABLET PO (20:59)
[2023-06-11] MEDS: PRAMIPEXOLE 0.25 MG TABLET PO (20:59)
[2023-06-11] MEDS: SENNOSIDES 8.6 MG TABLET 17.2 MG PO (20:59)
[2023-06-12] MEDS: hydrOXYzine pamoate 25 MG CAPSULE PO (05:35)
--- NOTE | 2023-06-12 07:54 | P.DS_ITS ---
History of Present Illness History of Present Illness Date Patient Seen: 06/12/23 Time Patient Seen: 07:54 Chief complaint: Neck pain Narrative: Patient's pain is [id number]. No fever or chills. No shortness of breath or chest pain. Discharge Providers Provider Date of admission: 06/11/23 06:27 Discharge Date: 06/12/23 Primary care physician: Yahaira Watkins PA-C Consults: 06/11/23 12:42 Consult to Occupational Therapy Evaluate & Treat Comment: Physician Instructions: Evaluate and treat Consult to Physical Therapy Evaluate & Treat Comment: Physician Instructions: Evaluate and Treat Discharge provider: Dontae Boo PA-C Summary Hospital Course Discharge Diagnosis: 1. C4-5, C5-6, C6-7 spinal stenosis 2. Cervical radiculopathy Hospital Course: 1.? C4-5 C5-6 C6-7 anterior cervical diskectomy and fusion 2.? C4-5 C5-6 C6-7 anterior interbody cage placement 3.? C4-5 C5-6 C6-7 anterior instrumentation with plate and screw placement in C4-C5-C6 and C7 vertebrae 4.? Utilization of microsurgical technique and operating microscope Same procedure as scheduled: Yes Indications: Patient has been having chronic neck pain and worsening cervical radiculopathy. Patient failed multiple conservative management with worsening pain weakness and numbness in his upper extremity.? Patient has been having difficulty performing activity of daily living.? After discussing risks benefits of treatment options, patient elected proceed with surgery. Surgeon: Josué Marshall Separator Operator: Dontae Boo Click Yes if Unassisted: No Anesthesia Type: General Operative Notes Closure Type: primary Specimen(s): none sent Prosthetic devices, grafts, tissues, transplants, or devices: Globus Extend Plate, Hedron C cages Applied: catheter Estimated Blood Loss (mL): 5 Blood products transfused: none Patient admitted to the hospital for the above-mentioned procedure. Patient consented to the same. Patient underwent cervical fusion June 11, 2023. Patient back in his room recovering well as in stable condition. Soft collar for comfort. Keep dressing clean and dry. Follow up in 2 weeks. Patient will be discharged today after physical therapy if safe for home environment. Exam Vital Signs (past 8 hours): Oxygen Delivery Method Room Air Oxygen Flow Rate 0 Narrative Exam Narrative: 72-year-old male resting comfortably in bed in no apparent distress. Soft collar in place. Dressing is clean, dry and intact. Motor functions intact bilateral upper extremities. Const General: cooperative and comfortable Nutritional Appearance: average body habitus Orientation: alert Resp Effort & Inspection: normal respiratory effort and able to speak in complete sentences [facility] Medical History Colon polyp (~2014) History of arthritis History of bruising easily History of cardiac arrhythmia History of degenerative disc disease History of Mohs micrographic surgery for skin cancer (~2016) HTN (hypertension) Hyperlipidemia Surgical History History of arthroscopy of right shoulder (~1991) History of carpal tunnel release (~2011) History of laminectomy (~1988) History of vasectomy (~1984) Hx of tonsillectomy Social History household members: spouse Smoking Status: Never smoker alcohol intake: current Discharge Assessment & Plan Assessment and Plan Assessment: Patient progressing as expected status post cervical fusion Plan of Treatment: Multimodal pain management Mobilize with physical therapy, limit bending, twisting, lifting Soft collar for comfort Discharge home today after physical therapy if safe for home environment Discharge Plan Discharge Plan Patient Disposition: Home Discharge orders & Medications Prescriptions: New acetaminophen 325 mg Tablet 650 mg PO Q6H PRN (Reason: Fever/Mild Pain (1-3)) Qty: 60 0RF docusate sodium 100 mg Capsule 100 mg PO BID Qty: 10 0RF oxycodone 5 mg Tablet 5 mg PO Q3H PRN (Reason: Pain, Moderate (4-6)) Qty: 40 0RF hydroxyzine pamoate 25 mg Capsule 25 mg PO Q4HR PRN (Reason: Nausea And Vomiting) Qty: 20 0RF Continued pramipexole 0.25 mg tablet 0.25 mg PO BEDTIME lisinopril 10 mg tablet 10 mg PO BEDTIME lovastatin 20 mg tablet 20 mg PO BEDTIME loratadine [Claritin] 10 mg Tablet 10 mg PO DAILY fluticasone propionate 50 mcg/actuation [place],Suspension 1 spray INTRANASAL BID cholecalciferol (vitamin D3) [Vitamin D3] 50 mcg (2,000 unit) Capsule 50 mcg PO DAILY Follow up/Referrals: Josué Marshall MD [Physician] - (2 weeks as scheduled) Yahaira Watkins PA-C [Primary Care Provider] - Diet/Activity/Treatments Diet: Diet as Tolerated Activity: Soft collar for comfort Skin/Wound/Dressing Care Report to your healthcare provider any signs of infection, such as:: chills, fever, night sweats, increased pain, unusual drainage and unusual redness Dressing: Keep dressing clean and dry Visit Report/Discharge Packet Instructions: DI for Prescription Opioid Use, DI for Anterior Cervical Discectomy and Fusion Stand Alone Forms: Patient Portal/API, Stroke Signs & Symptoms, Surgery Discharge Discharge Data Primary Care Provider: Yahaira Watkins Quality VTE Deep Vein Thrombosis/Pulmonary Embolism Present on Admission: No
[2023-06-12 08:00] VITALS: BP 125/71; PULSE 91; RESP 17; TEMP 36.1; O2SAT 96
[2023-06-12] MEDS: CHOLECALCIFEROL (VITAMIN D3) 1,000 UNIT TABLET 2000 UNIT PO (08:04)
[2023-06-12] MEDS: DOCUSATE 100 MG CAPSULE PO (08:04)
[2023-06-12] MEDS: LORATADINE 10 MG TABLET PO (08:04)
[2023-06-12] MEDS: OXYCODONE IR 5 MG TABLET PO (08:04)
--- NOTE | 2023-06-12 08:56 | CM.DANOTE ---
Initial DCP Assessment Note Reviewed chart for medical status and updates. Met with pt at bedside to introduce self and role. He shares that he will meet with OT later this morning, then will be d/c'd home. Payor: Medicare PCP: Yahaira Gardner Attending: Dr. Marshall Pt is a 72 year-old M admitted for a cervical fusion. Dx include spinal stenosis in cervical region, and other spondylosis. Pt was found to be sitting upright in bed, appearing comfortable, is oriented and able to participate in care. No anticipated home d/c needs indicated at this time. Plan is for d/c home later this afternoon. Pt to f/u OP with Dr. Marshall for further therapy recommendations. Discharge Planning/Care Management CM Discharge Assessment Start: 06/12/23 08:53 Freq: Status: Active Protocol: Document 06/12/23 08:53 DPL (Rec: 06/12/23 08:56 DPL [id number]) Discharge Planning Assessment Assigned Photoengraving Finisher RICO Beltran Advance Directives? Yes: DPOA for HC, HC Directive Advance Directives on File No History Provided By Patient,Medical Record Prior Living Arrangements House Household Members spouse Type of transporation used prior to Drives own vehicle admit Independent with ADL's Yes Is patient alert and oriented? Yes Needs Assistance With Home Chores / Shopping Caregiver for Another No Comment N/A DME Already Rented / Owned Elevated Toilet Seat Comment Grab bars in shower. Comment None Barriers to Discharge No Discharge Plan Home Transportation Arrangement Spouse Referrals Initiated None needed Inpatient Status as of 06/11/23 Whiteboard Updated in Patient Room with Yes name and ext. # of Photoengraving Finisher Review Status In Process Please Provide Date Initial DC 06/12/23 Assessment Was Performed Pre-Anesthesia Assessment Start: 06/06/23 08:45 Freq: Status: Complete Protocol: Document 06/06/23 10:00 TC (Rec: 06/06/23 08:49 TC [id number]) Pre-Anesthesia Assessment Preferred Name Rich Patient Information Reviewed Via Phone Assessment Assessment Completed With Patient Diagnostic Results BMP/CMP,CBC,EKG Comment 04/27/23- Primary Care Provider Yahaira Watkins Medical Clearance Received Not Applicable Seen Specialist in Last 12 Months Yes Specialist Seen Project Planner,Orthopedist, Other Comment [facility] Primary Language Swazi Preferred Language Swazi Height 177.8 cm Weight 82.554 kg Body Mass Index (BMI) 26.1 Hearing Ability Normal Visual Impairment Partially Limited Visual Assist Glasses,Magnifying Glass Dentition Type Teeth, Natural Present Barriers to Learning None Other Aids No Hx Anesthesia Reactions No: chills following surgery and urinary retention, 1988 Hx Family Anesthesia Reaction No Hx Malignant Hyperthermia No Hx Blood Transfusions No Hx Blood Transfusion Reaction No Anesthesia Review Requested No Thimble Press Operator No alcohol intake frequency a few times a week Alcohol Intake Frequency Other: no etoh since 05/17/21 Smoking Status Never smoker Substance Use Type does not use Pain Present Denied Pain Musculoskeletal Symptoms Joint Pain,Limited Range of Motion,Numbness,Radiating Pain into Limb,Tingling History of Falling (Recent or History of No ) Comment right arm Patient is completely paralyzed or No completely immobile Ambulatory Aid None/bed rest/nurse assist Mental Status Oriented to own ability Is patient on oxygen? No Does patient have WILSON/SOB No Hx Sleep Apnea No CPAP/BIPAP use not prescribed Currently Taking a Beta Jayme No Can You Climb a Flight of Stairs Without Yes SOB Hx Chest Pain No Hx SOB No Hx Syncope or Dizziness No Anti-Coagulant Therapy No Has a Physiotherapist'S Assistant No Cardiac Testing No Hx Pacemaker/ICD No Pacemaker Rep Required? No Cardiac Clearance Received Not Applicable Diet Type At Home Regular Dysphagia No Urinary Catheter Present No Hx Urinary Self Catheterization No Diabetes No Hx Drug Resistant Organism No Presence of External or Internal Medical No Devices Have you had any close contact with No: 05/24/23 someone diagnosed with COVID-19? Are you experiencing any of these No symptoms symptoms? Evaluation/Screening for possible COVID- Yes 19 infection completed? Received a COVID vaccine? Yes: 3 boosters Marital Status Lives With spouse Current Living Arrangements House Number of Floors (Floors) Two Floors Number of Stairs To Enter/Railing? 2 or 4 with railing Support System Spouse Does the Patient Have Assistance After Yes Surgery Patient Discharge Plan Description Return Home Feels Safe in Current Environment Yes Been Physically Hurt or Threatened By a No Person in Current Environment If Yes, Provider Notified No Do you have thoughts of harming yourself None or others? Are you currently considering suicide? No Do you have a plan to hurt yourself or No Plan others? If Yes, Provider Notified No Do You Have Any Spiritual Beliefs That No May Affect Your HC Choices? Do You Have Any Cultural Practices That No May Affect Your HC Choices? Who Can We Speak to About Patient's Care Lizeth (spouse) Health Care Proxy/Next of Kin Lizeth (spouse) Health Care Proxy Emergency Contact Name Lizeth (spouse) Emergency Contact Advance Directives? Yes: DPOA for HC, HC Directive Power of Certified Emergency Vehicle Technician Yes Power of Certified Emergency Vehicle Technician Name Lizeth Power of Certified Emergency Vehicle Technician PAC Instructions Assistance for 24 hours post- op,Do not shave/clip surgical site,Medications to take/avoid ,Nasal antibiotic,No ETOH/ petroleum product on skin DOS, NPO,Pre-surgical wash,Sturdy shoes/comfortable clothes,Do not bring valuables and remove jewelry
--- NOTE | 2023-06-12 09:15 | OT.IP.EVAL ---
Current Diagnoses Other spondylosis with radiculopathy, cervical region (06/11/23) Spinal stenosis, cervical region (06/11/23) Surgery Performed Operation Date: 06/11/23 07:45 Actual Procedures p C4-5, C5-6, C6-7 ACDF w. anterior instrumentation - Josué Marshall MD Past Medical History (Last Reviewed 06/12/23 @ 08:01 by Dontae Boo PA-C) Colon polyp (~2014) History of arthritis History of bruising easily History of cardiac arrhythmia History of degenerative disc disease History of Mohs micrographic surgery for skin cancer (~2016) HTN (hypertension) Hyperlipidemia Surgical History (Last Reviewed 06/12/23 @ 08:01 by Dontae Boo PA-C) History of arthroscopy of right shoulder (~1991) History of carpal tunnel release (~2011) History of laminectomy (~1988) History of vasectomy (~1984) Hx of tonsillectomy Occupational Therapy Inpatient Evaluation/Re-Eval Armrests,Grab Bars In Shower M1 PT/OT-IP Prior Functional Status Start: 06/12/23 09:13 Freq: NEEDED Status: Active Protocol: Document 06/12/23 08:53 [facility] (Rec: 06/12/23 09:27 [facility] [id number]) Medical Review Prior Functional Status Medical History Reviewed Yes Communication No barriers to communication. Mobility and Gait Pt did not use AD prior to surgery. Activities of Daily Living and IADL's Pt independent with IADL's. Pt with recent bilateral shoulder injuries, which makes self-care more difficulty. Social History Household Members spouse Living Arrangements House Number of Floors (Floors) Two Floors Number of Stairs To Enter/Railing? 4 steps with right rail from the garage. Home Environment High Toilet,Walk in Shower Home Equipment Raised Toilet Seat Without Armrests,Hand Held Shower, Fiberglass Model Maker,Grab Bars In Shower Additional Social History Comment Pt has a built in shower seat. M2 OT-IP Current Condition Start: 06/12/23 09:13 Freq: Status: Active Protocol: Document 06/12/23 08:53 [facility] (Rec: 06/12/23 09:27 [facility] [id number]) Occupational Therapy Current Condition Current Condition Evaluation Date 06/12/23 Treatment Diagnosis S/P C4-C7 ACDF Diagnosis Onset Date 06/11/23 Post Operative Precautions Cervical Spine Precautions Soft Collar for Comfort,No Heavy Lifting,Log Roll M3 OT- IP Subjective and Pain Start: 06/12/23 09:13 Freq: Status: Active Protocol: Document 06/12/23 08:53 [facility] (Rec: 06/12/23 09:27 [facility] [id number]) OT- Subjective Occupational Therapy Visit Type Type Initial Evaluation Visit Start Time 08:51 Visit Stop Time 09:15 Total Visit Minutes 24 Occupational Therapy Visit Comments Patient Comments Pt agreed to get up and get dressed. Patient/Caregiver Goals TO go home OT Pain Assessment Pain When Pain Assessed At Rest Pain Present Pain Present Pain Reported Location Left Shoulder Intensity 3 Scale Used Numeric (0 - 10) M4 OT- IP ADL's Start: 06/12/23 09:13 Freq: Status: Active Protocol: Document 06/12/23 08:53 [facility] (Rec: 06/12/23 09:27 [facility] [id number]) OT [id number] Comments OT Self-Feeding Comments Able to go over information for swallowing needs after ACDF with pt. Pt able to state good understanding. OT ADL-Grooming Comments OT Grooming Comments Pt states did prior. OT ADL-Oral Care Comments Oral Care Comments Pt did prior and reminded best to spit into a cup or hinge at his hips to best follow his cervical precautions. OT ADL-Dressing General Eval Upper Body Dressing Ability Minimal Assistance Lower Body Dressing Ability Standby Assistance Areas Needing Assistance Button-Up Shirt/Blouse Comments OT Dressing Comments Assist to get his shirt up over his shoulder due to limited AROM from his rotator cuff injuries. At this time pt will not be able to erin/ doff his soft collar due to limited AROM of his RUE>>LUE. Pt educated to cross his legs up higher so able to drafter marine easier with his RUE especially due to limited AROM. OT ADL-Toileting Comments OT Toileting Comments Pt states has used the toilet on his own already. At this time will be easier to stand to wipe. OT ADL-Bathing Comments OT Bathing Comments Pt states to do at home. M5 OT- IP IADL's Start: 06/12/23 09:13 Freq: Status: Active Protocol: Document 06/12/23 08:53 [facility] (Rec: 06/12/23 09:27 [facility] [id number]) OT-Instrumental Activities of Daily Living Deficits IADL Deficits Identified Deficits Home Safety Awareness Awareness of Need for Assistance at Home Good Awareness Ability to Problem Solve Emergency Able to Problem Solve Situations Medication Management Medication Management No Deficits Identified Money Management Money Management No Deficits Identified Meal Preparation Meal Preparation Comments Pt's to assist. Product Development Specialist Product Development Specialist Comments Pt's to assist. M6 OT- IP Functional Cognition Start: 06/12/23 09:13 Freq: Status: Active Protocol: Document 06/12/23 08:53 [facility] (Rec: 06/12/23 09:27 [facility] [id number]) Cognitive Factors Limiting Selfcare Function Cognitive Ability Level of Alertness Alert Patient Orientation Name,Age,Birthday,Month,Date, Year,Day of Week,Place, Situation Attention Span Ability Capable of Focused Attention, Capable of Sustained Attention Ability to Follow Commands Able to Follow Multi-Step Commands Memory Description No Deficits Noted Safety Awareness No Deficits Noted Cognitive Comments Cognitive Assessment Comments Intact. OT- Vision and Hearing OT- Hearing Assessment OT- Hearing Assessment WFL OT- Vision Assessment Visual Acuity Glasses All The Time Visual Attentiveness WFL Occular Pursuits WFL M7 OT- IP Mobility and Balance Start: 06/12/23 09:13 Freq: Status: Active Protocol: Document 06/12/23 08:53 [facility] (Rec: 06/12/23 09:27 [facility] [id number]) OT- Bed Mobility Assessment Supine to Sit Supine to Sit Assist Independent Sit to Supine Sit to Supine Assist Independent OT-Transfer Assessment Sit to and From Stand Sit to and from Stand Independent Transfers Transfer Ability Independent Technique Transfer Destination Bed,Chair Transfer Technique Stand Step Pivot Devices Transfer Assistive Devices None Comments Mobility Comments Able to go over log rolling with the pt. Pt states to sleep in his recliner at home initially which will be next to the bed. Pt independent with mobility needs in the room. Able to go over techniques to get into the car . OT- Balance Assessment Sitting Balance and Reactions Static Sitting Balance Ability Normal Dynamic Sitting Balance Ability Normal Standing Balance and Reactions Static Standing Balance Ability Normal Dynamic Standing Balance Ability Good M8 OT- IP Objective Assessments Start: 06/12/23 09:13 Freq: Status: Active Protocol: Document 06/12/23 08:53 [facility] (Rec: 06/12/23 09:27 [facility] [id number]) OT Gross Range of Motion Upper Extremity Range of Motion Assessment Bilaterally Impaired ROM Impairments Unable to lift up RUE.LUE only able to lift approx to 90degrees. OT Strength Upper Extremity Strength Assessment Bilaterally Impaired Comments Strength Comments NT due to recent surgery. OT- Coordination Assessment Comments Coordination Comments WFL for buttons. M9 OT- IP Assessment and Plan Start: 06/12/23 09:13 Freq: Status: Active Protocol: Document 06/12/23 08:53 [facility] (Rec: 06/12/23 09:27 [facility] [id number]) OT Summary Assessment and Plan Potential Rehabilitation Potential Good Analytic Complexity at Evaluation Low Summary OT Impairments Pain,Range of Motion,Balance, Functional Mobility,Dressing, Bathing,Shower Transfers Progress Towards Goals Progressing Toward Goals Assessment Summary Pt low complexity and main barriers are pain, steps, and limited AROM however due to prior rotator cuff injuries which limits his ability for dressing needs including his soft collar. Pt has a supportive to be assisting him with his needs at home. Pt to go home with assist when medically stable. Goals Dressing Goal Minimal Assistance Toileting Goal Independent Bathing Goal Independent Toilet Transfer Goal Independent Shower Transfer Goal Independent Days to Meet Goals 1 Frequency of Treatment Frequency Of Treatment Once a Day Treatment Plan OT Treatment Plan ADL Training,Functional Mobility,Patient/Family Education,Discharge Planning Discharge Recommendations OT Discharge Recommendations Home with Assistance Transportation Needs at Discharge Private Vehicle
--- NOTE | 2023-06-12 10:18 | PT.IPTN ---
Current Diagnoses Other spondylosis with radiculopathy, cervical region (06/11/23) Spinal stenosis, cervical region (06/11/23) Surgery Performed Operation Date: 06/11/23 07:45 Actual Procedures p C4-5, C5-6, C6-7 ACDF w. anterior instrumentation - Josué Marshall MD Physical Therapy Treatment Note M2 PT-IP Current Condition Start: 06/11/23 15:22 Freq: NEEDED Status: Active Protocol: Document 06/11/23 17:01 AM (Rec: 06/11/23 17:21 AM [id number]) Physical Therapy Current Condition Current Condition Evaluation Date 06/11/23 Treatment Diagnosis cervical fusion Onset Date 06/11/23 M3 PT-IP Subjective Start: 06/11/23 15:22 Freq: NEEDED Status: Active Protocol: Document 06/12/23 10:48 AB (Rec: 06/12/23 10:55 AB [id number]) Subjective Physical Therapy Visit Type Type Treatment Note Visit Start Time 10:10 Visit Stop Time 10:18 Total Visit Minutes 8 Physical Therapy Visit Comments Patient Comments Pt presents seated in chair and is agreeable to final PT session prior to discharge. He reports he has no pain at this time. Therapy Pain Assessment Pain When Pain Assessed At Rest Pain Present Pain Present Denied Pain M4 PT-IP Mobility and Gait Start: 06/11/23 15:22 Freq: NEEDED Status: Active Protocol: Document 06/12/23 10:48 AB (Rec: 06/12/23 10:55 AB [id number]) PT-Transfer Assessment Sit to and From Stand Sit to and from Stand Independent,Use of Upper Extremities Transfers Transfer Destination Chair Transfer Technique Stand Step Pivot Transfer Ability Level of Assist Independent Comments Mobility Comments Pt demonstrates independence with STS and transfers, as well as good body mechanics. After bout of ambulation and stairs, pt returned to chair with all needs met, call light within reach, and present in room. Gait Assessment Gait Gait Assistance Required: Independent Distance (Feet) 200 Gait Deviations General Gait Pattern Within Normal Limits Comments Gait Comments No significant deviations noted and no AD needed; pt demonstrates good safety awareness while ambulating and uses soft collar. Stair Climbing Assessment Evaluation Level of Assist On Stairs Independent Devices Stair Climbing Assistive Devices Left Railing Technique/Endurance Stair Climbing Direction Ascend and Descend Stair Climbing Technique Step Over Step Number of Steps Climbed 3 Stair Climbing Set # Repetitions (reps) 1 Comments Stair Climbing Comments No significant deviations noted; pt demonstrates good safety awareness while performing stairs and uses soft collar. PT-Balance Assessment Sitting Balance and Reactions Static Sitting Balance Ability Normal Dynamic Sitting Balance Ability Normal Standing Balance and Reactions Static Standing Balance Ability Normal Dynamic Standing Balance Ability Normal M5 PT-IP Objective Assessments Start: 06/11/23 15:22 Freq: NEEDED Status: Active Protocol: Document 06/11/23 17:01 AM (Rec: 06/11/23 17:21 AM [id number]) Orientation Orientation/Cognition Level of Alertness Alert Orientation Name,Date,Place,Situation Language Function Ability No Deficits Noted Safety Awareness Understands Safety Issues Memory Description No Deficits Noted Gross Range of Motion Upper Extremity ROM Assessment Bilaterally Impaired Impairments Pt reports that he recently injured bilateral shoulders. Pt with 90 degrees of L shoulder flexion and unable to lift R. Lower Extremity ROM Assessment Within Functional Limits Strength Upper Extremity Strength Assessment Bilaterally Impaired Shoulder NT secondary to shoulder pain and post-op fusion, though unable to do AROM Lower Extremity Strength Assessment Within Functional Limits Coordination Assessment Gross Coordination Gross Coordination WNL Sensation Assessment Sensation Gross Sensation WNL Muscle Tone Muscle Tone WNL Yes M6 PT-IP Treatment Start: 06/11/23 15:22 Freq: NEEDED Status: Active Protocol: Document 06/12/23 10:48 AB (Rec: 06/12/23 10:55 AB [id number]) Physical Therapy Treatment Education Education Provided Precautions,Safety Brace Education Patient M7 PT-IP Assessment and Plan Start: 06/11/23 15:22 Freq: NEEDED Status: Active Protocol: Document 06/12/23 10:48 AB (Rec: 06/12/23 10:55 AB [id number]) PT Summary Assessment and Plan Potential Rehabilitation Potential Excellent Status of Condition at Evaluation Stable Summary Progress Towards Goals Safe For Discharge,Goals Met Assessment Summary Young demonstrates independence with basic functional mobility and no significant deviations that are of concern. He also demonstrates good safety awareness, as well as good understanding of education provided. Based on his improvement, PT continues to recommend discharge to home. Pt will be discharging from PT as he is independent with functional mobility. Goals Bed Mobility Goal Independent Transfer Goal Independent Gait Goal Independent Gait Distance 300 Other Goals Pt able to ascend/descend 2 steps with railing. Days to Meet Goals 5 Frequency of Treatment Frequency Of Treatment Discharge Treatment Plan Physical Therapy Treatment Plan Bed Mobility Training,Transfer Training,Gait Training, Therapeutic Exercise,Balance Retraining,Post Op Education, Discharge Planning,Hot or Cold Pack,Neuromuscular Re-ed, Manual Therapy Other Recommendations and Next Treatment Assess stairs Focus Precautions Cervical Spine Precautions Soft Collar for Comfort,No Heavy Lifting,Log Roll Weight Bearing Status Weight Bearing Status Full Weight Bearing Recommendations To Nursing Amount of Assist Needed Independent Discharge Recommendations PT Discharge Recommendations Home Transportation Needs at Discharge Private Vehicle
--- NOTE | 2023-06-12 10:41 | PC.NURSE ---
Day shift: Discharge instructions gone over with patient and patient's spouse. B PIVs removed. All questions answered. Escorted patient via wheelchair to main entrance where spouse waiting. All belongings with patient's spouse.
== END 2023-06-12 10:57 | disposition home or self-care (01) | DRG 473 ==
PROVIDERS: Admitting Provider Orthopaedic Surgery Orthopaedic Surgery of the Spine; PCP Physician Assistant; Referring Provider Internal Medicine; Visit Provider Orthopaedic Surgery Orthopaedic Surgery of the Spine
PROC: 0RG20A0 Fusion of 2 or more Cervical Vertebral Joints with Interbody Fusion Device, Anterior Approach, Anterior Column, Open Approach (ICD-10-PCS; principal; 2023-06-11 07:45)
DX: M48.02 Spinal stenosis, cervical region (principal); M47.22 Other spondylosis with radiculopathy, cervical region; M50.10 Cervical disc disorder with radiculopathy, unspecified cervical region; I10 Essential (primary) hypertension; E78.5 Hyperlipidemia, unspecified
CPT/HCPCS: 72040; 76000; 97161; 97165; 97530; 97535; C1713; J0171; J0690; J1100; J1170; J2250; J2405; J2704; J3010; J3410

== ENCOUNTER 2024-01-18 13:51 | Emergency (ER) | payer MEDICARE, SELFPAY ==
[2024-01-18] VITALS (7 sets, daily range): BP systolic 140–203; BP diastolic 85–91; PULSE 71–95; RESP 8–17; TEMP 36.6; O2SAT 96–99; BMI 26.1; BMI 27.2
--- NOTE | 2024-01-18 13:59 | DI.RAD.S_ITS ---
PROCEDURE: XR CHEST 1V INDICATIONS: chest pain TECHNIQUE: One view of the chest was acquired. COMPARISON: [facility], , CHEST 2 VIEW, 12/11/2017, 16:12. FINDINGS: Surgical changes and devices: None. Lungs and pleura: Lungs are clear considering reduced inspiratory volume. No pleural effusions or pneumothorax. Mediastinum: Mediastinal contours appear normal. Heart size is normal. Bones and chest wall: No suspicious bony lesions. Overlying soft tissues appear unremarkable. IMPRESSION: No acute cardiopulmonary abnormality is seen. Reduced inspiratory volume Dictated by: Ashvin Jones M.D. on 01/18/2024 at 14:37 Approved by: Ashvin Jones M.D. on 01/18/2024 at 14:37
[2024-01-18 14:23] LABS: Add Manual Diff / Slide Review NO; Basophils Absolute Auto 100 /uL (0-100); Basophils Percent Auto 0.8 % (0-2); Eosinophils Absolute Auto 100 /uL (0-450); Eosinophils Percent Auto 2.1 % (2-4); Hematocrit 43.3 % (41-53); Hemoglobin 14.8 g/dL (13.5-17.5); Lymphocytes Absolute Auto 2400 /uL (1100-4500); Mean Corpuscular HGB Conc 34.2 % (30-36); Mean Corpuscular Hemoglobin 32.1 PG (26-34); Mean Corpuscular Volume 93.6 fL (80-100); Monocytes Absolute Auto 500 /uL (0-900); Monocytes Percent Auto 7.9 % (3-14); Neutrophils Absolute Auto 3600 /uL (1500-7000); Neutrophils Percent Auto 54.2 % (50-75); Platelet Count 305 X10^3/uL (150-400); Red Blood Cell Count 4.62 X10^6/uL (4.5-5.9); Red Cell Distribution Width 13.4 % (11.6-14.8); White Blood Cell Count 6.7 X10^3/uL (4.5-11.0)
[2024-01-18 14:30] LABS: INR 0.9 (0.9-1.3); Prothrombin Time 10.3 SECONDS (9.4-12.5)
[2024-01-18 14:33] LABS: PTT Partial Thromboplastin Tim 34 SECONDS (25.1-36.5)
[2024-01-18 14:35] LABS: Alanine Aminotransferase 31 IU/L (<50); Albumin 4.6 g/dL (3.5-5.0); Albumin Globulin Ratio 1.6 (1.0-2.8); Alkaline Phosphatase 70 U/L (38-126); Aspartate Aminotransferase 40 IU/L (17-59); BUN Creatinine Ratio 15.1 (6-22); Bilirubin Total 0.7 mg/dL (0.2-1.3); Blood Urea Nitrogen 18 mg/dL (9-20); Calcium 9.5 mg/dL (8.4-10.2); Carbon Dioxide 26 mmol/L (22-32); Chloride 103 mmol/L (98-107); Creatine Kinase 288 U/L (55-170); Estimated Glomerular Filt Rate > 60 mL/min (>60); Globulin 2.9 g/dL (1.7-4.1); Glucose 117 mg/dL (80-110); HEMOLYSIS < 15 (0-50); Lipase 175 U/L (23-300); Magnesium 2.2 mg/dL (1.6-2.3); Potassium 4.5 mmol/L (3.4-5.1); Sodium 135 mmol/L (137-145); Total Protein 7.5 g/dL (6.3-8.2)
--- NOTE | 2024-01-18 14:42 | ED_ITS ---
HPI - Arrhythmia/Palpitations General Chief Complaint: Arrhythmia/Palpitations Stated Complaint: palpitations Time Seen by Provider: 01/18/24 14:13 Source: patient Mode of arrival: Ambulatory History of Present Illness HPI narrative: 73-year-old male presents for evaluation of intermittent palpitations for the last 4 days. States that he had something similar happened 4 years ago, he followed up with Cardiology and was diagnosed with PVCs, however these PVCs spontaneously resolved with time. Patient was hoping that the palpitations would sepsis on their own, but when they persisted he decided to present for evaluation. He reports a history of cardiac disease in father and brother and wants to make sure that he was not suffering a coronary event. He denies chest pain or shortness of breath. Related Data Home Medications Medication Instructions Recorded Confirmed cholecalciferol (vitamin D3) 50 50 mcg PO DAILY 02/15/21 06/11/23 mcg (2,000 unit) capsule (Vitamin D3) fluticasone propionate 50 1 spray intranasal BID 02/15/21 06/11/23 mcg/actuation nasal spray,suspension pramipexole 0.25 mg tablet 0.25 mg PO BEDTIME 01/27/23 06/11/23 lisinopril 10 mg tablet 10 mg PO BEDTIME 06/06/23 06/11/23 loratadine 10 mg tablet (Claritin) 10 mg PO DAILY 06/06/23 06/11/23 lovastatin 20 mg tablet 20 mg PO BEDTIME 06/06/23 06/11/23 Previous Rx's Medication Instructions Recorded acetaminophen 325 mg tablet 650 mg (2 x 325 mg) PO Q6H PRN 06/12/23 Fever/Mild Pain (1-3) #60 tabs docusate sodium 100 mg capsule 100 mg PO BID #10 caps 06/12/23 hydroxyzine pamoate 25 mg capsule 25 mg PO Q4HR PRN Nausea And 06/12/23 Vomiting #20 caps oxycodone 5 mg tablet 5 mg PO Q3H PRN Pain, Moderate 06/12/23 (4-6) #40 tabs Allergies Allergy/AdvReac Type Severity Reaction Status Date / Time No Known Drug Allergies Allergy Verified 01/18/24 14:01 Review of Systems Review of Systems Narrative: See HPI Patient History Medical History History of bruising easily History of Mohs micrographic surgery for skin cancer (~2016) History of degenerative disc disease History of arthritis History of cardiac arrhythmia Colon polyp (~2014) Hyperlipidemia HTN (hypertension) Surgical History History of carpal tunnel release (~2011) History of arthroscopy of right shoulder (~1991) History of vasectomy (~1984) Hx of tonsillectomy History of laminectomy (~1988) Social History household members: spouse Smoking Status: Never smoker alcohol intake: current Smoking Status: Never smoker alcohol intake frequency: a few times a week Substance Use Type: does not use Exam Initial Vital Signs Initial Vital Signs: Vital Signs Pulse Rate 94 H 01/18/24 13:58 Blood Pressure 181/88 H 01/18/24 13:58 Pulse Oximetry 98 01/18/24 13:58 Const: Awake, alert, no acute distress, nontoxic appearing Cardiac: regular rate, regular rhythm RESP: unlabored, clear bilaterally, no wheezing GI: Soft, nontender, nondistended, no rebound, no guarding MSK: Atraumatic, full range of motion, pulses equal Skin: Warm, Dry, intact, no rashes Neuro: AO x3, CN II-XII grossly intact, moves all extremities Course Orders Ordered: Discontinued Medications Aspirin (Aspirin 81 Mg Chew Tab) 324 mg PO NOW ONE Stop: 01/18/24 14:00 Vital Signs Vital signs: Vital Signs - 8 hr 01/18/24 13:58 01/18/24 13:58 01/18/24 14:00 Temperature 97.8 F Pulse Rate 94 H 94 H Respiratory Rate 16 Blood Pressure 181/88 H 181/88 H Pulse Oximetry 98 98 Oxygen Delivery Method Room Air 01/18/24 14:00 01/18/24 14:01 01/18/24 14:01 Temperature Pulse Rate 95 H 89 Respiratory Rate Blood Pressure 203/91 H Pulse Oximetry 99 99 Oxygen Delivery Method Room Air 01/18/24 14:30 01/18/24 14:31 01/18/24 14:31 Temperature Pulse Rate 81 79 Respiratory Rate 14 17 Blood Pressure 147/85 H Pulse Oximetry 96 98 Oxygen Delivery Method 01/18/24 15:00 01/18/24 15:30 01/18/24 15:30 Temperature Pulse Rate 74 71 Respiratory Rate 8 L 12 Blood Pressure 140/86 Pulse Oximetry 98 97 Oxygen Delivery Method MDM - Arrhythmia/Palpitations Differential Diagnosis Differential diagnosis: Likely palpitations, anxiety and sinus tachycardia Lab Data 01/18/24 14:15 01/18/24 14:15 Labs: Lab Results 01/18/24 Range/Units 14:15 WBC 6.7 (4.5-11.0) X10^3/uL RBC 4.62 (4.5-5.9) X10^6/uL Hgb 14.8 (13.5-17.5) g/dL Hct 43.3 (41-53) % MCV 93.6 (80-100) fL MCH 32.1 (26-34) PG MCHC 34.2 (30-36) % RDW 13.4 (11.6-14.8) % Plt Count 305 (150-400) X10^3/uL Neut % (Auto) 54.2 (50-75) % Lymph % (Auto) 35.0 (25-40) % [place] % (Auto) 7.9 (3-14) % Eos % (Auto) 2.1 (2-4) % Baso % (Auto) 0.8 (0-2) % Neut # (Auto) 3600 (9532-3920) /uL Lymph # (Auto) 2400 (4446-2077) /uL [place] # (Auto) 500 (0-900) /uL Eos # (Auto) 100 (0-450) /uL Baso # (Auto) 100 (0-100) /uL PT 10.3 (9.4-12.5) SECONDS INR 0.9 (0.9-1.3) APTT 34 (25.1-36.5) SECONDS Sodium 135 L (137-145) mmol/L Potassium 4.5 (3.4-5.1) mmol/L Chloride 103 (98-107) mmol/L Carbon Dioxide 26 (22-32) mmol/L BUN 18 (9-20) mg/dL Creatinine 1.19 (0.66-1.25) mg/dL Estimated GFR > 60 (>60) mL/min BUN/Creatinine Ratio 15.1 (6-22) Glucose 117 H (80-110) mg/dL Calcium 9.5 (8.4-10.2) mg/dL Magnesium 2.2 (1.6-2.3) mg/dL Total Bilirubin 0.7 (0.2-1.3) mg/dL AST 40 (17-59) IU/L ALT 31 (<50) IU/L Alkaline Phosphatase 70 (38-126) U/L Total Creatine Kinase 288 H (55-170) U/L Troponin I < 0.012 (0.01-0.034) ng/mL Total Protein 7.5 (6.3-8.2) g/dL Albumin 4.6 (3.5-5.0) g/dL Globulin 2.9 (1.7-4.1) g/dL Albumin/Globulin Ratio 1.6 (1.0-2.8) Lipase 175 (23-300) U/L ECG Data Interpretation: Normal sinus rhythm, normal [place], no ST T wave changes MDM Narrative Medical decision making narrative: Well-appearing patient with intermittent palpitations. On quality assurance monitor patient does apparently have occasional PVCs, EKG shows no acute ischemic findings. Laboratory work is reviewed, no electrolyte abnormalities, normal hemoglobin, troponin undetectable. Chest x-ray shows no acute findings. Patient's PVC burden while in the emergency department and on quality assurance monitor is quite low, with PVC present 1 or 2 per minute. Patient informed of all lab and imaging findings, he was relieved to know that his cardiac workup seems to be reassuring. He states that he will reach back out to his wood pole treater to see if an additional monitoring or treatment is needed. Offered low-dose beta-puneet while he waits to see Cardiology, patient declined stating that he would prefer to wait until he sees his wood pole treater. Discharge Plan Departure Patient Disposition: Home Clinical Impression: Palpitations Instructions: Premature Ventricular Beats, DI for Palpitations Activity Restrictions/Additional Instructions: Your labs, EKG, chest x-ray were normal today. I did note that you had occasional PVCs on your monitor. I do recommend following up with either your primary care physician or Cardiology for additional monitoring. Prescriptions: No Action pramipexole 0.25 mg tablet 0.25 mg PO BEDTIME lisinopril 10 mg tablet 10 mg PO BEDTIME lovastatin 20 mg tablet 20 mg PO BEDTIME loratadine [Claritin] 10 mg Tablet 10 mg PO DAILY acetaminophen 325 mg Tablet 650 mg PO Q6H PRN (Reason: Fever/Mild Pain (1-3)) Qty: 60 0RF docusate sodium 100 mg Capsule 100 mg PO BID Qty: 10 0RF oxycodone 5 mg Tablet 5 mg PO Q3H PRN (Reason: Pain, Moderate (4-6)) Qty: 40 0RF hydroxyzine pamoate 25 mg Capsule 25 mg PO Q4HR PRN (Reason: Nausea And Vomiting) Qty: 20 0RF fluticasone propionate 50 mcg/actuation [place],Suspension 1 spray INTRANASAL BID cholecalciferol (vitamin D3) [Vitamin D3] 50 mcg (2,000 unit) Capsule 50 mcg PO DAILY Referrals: Katja Olsen DO [Physician] - Yahaira Watkins PA-C [Primary Care Provider] - Stand Alone Forms: Patient Portal/API
[2024-01-18 14:47] LABS: Troponin I < 0.012 ng/mL (0.01-0.034)
== END 2024-01-18 15:41 | disposition home or self-care (01) ==
PROVIDERS: Emergency Provider Emergency Medicine; PCP Physician Assistant
DX: R00.2 Palpitations (principal)
CPT/HCPCS: 36415; 71045; 80053; 82550; 83690; 83735; 84484; 85025; 85610; 85730; 93005; 93010; 99283; 99284

== ENCOUNTER → 2024-04-10 07:39 | Outpatient (CLI) | payer MEDICARE, SELFPAY ==
[2024-01-18 13:51] VITALS: BMI 26.1
--- NOTE | 2024-04-10 07:41 | DI.ECHO.S_ITS ---
[facility] : : [id number] : : [place] : : [id number] : : Phone: [phone] Echocardiogram Report + + :Name: MAGED BUSTAMANTE Study Date: 04/10/2024 Height: 70 in : :Hospital ReadingLocation: Weight: 192 lb : : Gender: Male BSA: 2.1 m2 : :: 1950 Age: 73 yrs BP: 129/85 mmHg: :Reason For Study: DYSPNEA ON EXERTION, HYPERTENSION : :Ordering Physician: MELO, : :MIRNA Performed By: Shira Tyson : :Referring: MIRNA GARCIA : + + Interpretation Summary 1) Normal left ventricular thickness, size, wall motion, and systolic function (EF 60-65%). 2) Normal right ventricular size and function. 3) No significant valvular abnormalities. 4) No prior Echo available for comparison. Procedure: A two-dimensional transthoracic echocardiogram with color flow and Doppler was performed. The study quality was technically adequate. There is no prior echocardiogram noted for this patient. The patient was in sinus rhythm with heart rates between 75-86 bpm during the exam. Left Ventricle: The left ventricle is normal in size and wall thickness. The ejection fraction is estimated to be 60-65%. Left ventricular systolic function appears normal without focal wall motion abnormalities. Right Ventricle: The right ventricle is normal in size and function. Atria: The left atrial size is normal. Right atrial size is normal. There is no Doppler evidence for an interatrial shunt. Mitral Valve: The mitral valve is normal in structure and function. There is trace mitral regurgitation. Aortic Valve: The aortic valve is trileaflet. The aortic valve opens well. There is no aortic valve stenosis. No aortic regurgitation is present. Tricuspid Valve: The tricuspid valve is normal in structure and function. There is trace tricuspid regurgitation. The right ventricular systolic pressure is estimated to be at least 22 mmHg based on an estimated right atrial pressure of 3 mm Hg. Pulmonic Valve: The pulmonic valve leaflets are thin and pliable; valve motion is normal. There is mild pulmonic regurgitation. Great Vessels: The aortic root is normal size. The dimensions of the ascending aorta are normal. The IVC is of normal diameter and collapses greater than 50% with a sniff. This suggests a low right atrial pressure of 3 mm Hg. Pericardium/ Pleura There is no pericardial effusion. There is no pleural effusion. MMode/2D Measurements & Calculations LVIDd: 4.6 cm LVOT diam: 2.0 cm LVIDs: 3.0 cm Ao root diam: 3.6 cm FS: 34.7 % asc Aorta Diam: 3.1 cm IVSd: 0.84 cm Ao Arch Diam (Prox Trans): 3.0 cm LVPWd: 0.70 cm LV rascon. diameter/BSA (cm/m^2): 2.3 LV sys. diameter/BSA (cm/m^2): 1.5 LA A2 area: 16.7 cm2 RA long axis: 4.6 cm LA A4 area: 14.7 cm2 RA area: 12.9 cm2 LA length (vol): 4.5 cm RA vol: 30.6 ml LA vol: 46.6 ml RA : 14.9 ml/m2 LA vol index: 22.7 ml/m2 IVC diam: 1.5 cm RVD1 (basal): 3.6 cm RVD2 (mid): 3.0 cm TAPSE: 1.8 cm Doppler Measurements & Calculations Ao V2 max: 94.0 cm/sec LVOT Max Abdirahman: 94.4 cm/sec Ao V2 mean: 67.7 cm/sec LV V1 max P.6 mmHg Ao max P.5 mmHg LV V1 VTI: 17.7 cm Ao mean P.0 mmHg JULIANN(I,D): 2.9 cm2 Ao V2 VTI: 18.8 cm JULIANN(V,D): 3.1 cm2 sev ratio: 0.94 JULIANN indexed to BSA (cm^2/m^2): 1.4 MV E max abdirahman: 61.5 cm/sec TR max abdirahman: 218.4 cm/sec MV A max abdirahman: 95.2 cm/sec TR max P.1 mmHg MV E/A: 0.65 PA V2 max: 92.4 cm/sec Med Peak E' Abdirahman: 5.9 cm/sec PA V2 mean: 66.6 cm/sec E/E' med: 10.4 PA mean P.9 mmHg Lat Peak E' Abdirahman: 7.3 cm/sec PA pr(Accel): 37.9 mmHg E/E' lat: 8.4 E/e' average: 9.4 MV dec time: 0.19 sec SV(LVOT): 53.9 ml Reading Physician:12:[id number] PM
--- NOTE | 2024-04-10 07:41 | DI.NM.S_ITS ---
PROCEDURE: NM EXERCISE TREADMILL NON NUC COMPARISON: None. INDICATIONS: WILSON / HTN FINDINGS: Rest ECG sinus rhythm. Hari protocol 9:48, maximum heart rate 162 bpm (109% peak predicted), maximum blood pressure 202/90, 10.7 METS, SHANA -42%. Exercise ECG tachycardia, 1 to 1.5 mm horizontal to upsloping ST segment depressions V4 to V6, no ectopy or arrhythmia. The patient did not complain of exercise-induced chest discomfort. IMPRESSION: Intermediate risk study. Borderline horizontal to upsloping ST segment depressions induced by exercise. Normal hemodynamic response. Very good exercise capacity Dictated by: Katja Olsen D.O. on 04/10/2024 at 12:18 Approved by: Katja Olsen D.O. on 04/10/2024 at 12:28
== END ==
PROVIDERS: PCP Physician Assistant; Referring Provider Internal Medicine Cardiovascular Disease; Visit Provider Internal Medicine Cardiovascular Disease
DX: I37.1 Nonrheumatic pulmonary valve insufficiency (principal); R06.09 Other forms of dyspnea; I10 Essential (primary) hypertension
CPT/HCPCS: 93017; 93306